=== PATIENT | female | born 1960 | race Caucasian/White ===

== ENCOUNTER → 2017-07-24 | Outpatient (CLI) | payer BC ==
--- NOTE | 2017-07-24 14:51 | MG ---
HISTORY: Left breast lump Bilateral digital diagnostic mammography with CAD and left breast ultrasound. Comparison: June 05, 2015 FINDINGS: Bilateral CC and MLO projections of the right and left breast were obtained. Scattered fibroglandula r tissue is seen to be present with evidence of interval reduction mammoplasty with probably benign r egions of postsurgical scar and redistribution of breast parenchyma. On the left in the region of in terest, there is an underlying superficial rounded partially obscured and partially circumscribed 10 mm hyperdense nodule which will be correlated with ultrasound. No skin thickening or nipple retracti on is appreciated. No pathological lymphadenopathy can be identified. Benign-appearing calcificatio ns are noted within the right and left breast. Several small lucent centered oil cysts are noted on t he left. Ultrasound: Multiple grayscale and color Doppler images of the left breast were obtained at 8-9 o'yamini ck. At 8 o'clock approximately 6 cm from the nipple, there is a horizontally oriented smoothly margin ated and well circumscribed hypoechoic nodule with posterior acoustical enhancement and internal Dopp ler flow which could reflect artifact related to internal debris with equivocal microcalcifications f avored to represent a developing oil cyst. At 9 o'clock approximately 4 cm from the nipple, there is a 7 mm horizontally oriented smoothly marginated and well circumscribed anechoic cyst with posterior acoustical enhancement and no internal Doppler flow which again could reflect a developing oil cyst o r simple parenchymal cysts. No suspicious cystic or solid nodule is seen to warrant biopsy at this ti me. IMPRESSION: Probably benign postsurgical changes bilaterally and developing oil cyst on the left for which six-month follow-up bilateral mammography is recommended to document stability and establish a new baseline. Ultrasound may be warranted as well pending mammographic findings. ACR CATEGORY 3 - probably benign findings; short interval follow-up suggested. Diagnostic CAD was utilized and reviewed. * 0 (ZERO) - ASSESSMENT INCOMPLETE; ADDITIONAL IMAGING IS NEEDED. * 1/ (ONE) - NEGATIVE. * 2/II (TWO) - BENIGN FINDINGS. * 3/III (THREE) - PROBABLY BENIGN FINDING; SHORT INTERVAL FOLLOW-UP SUGGESTED. * 4/IV (FOUR) - SUSPICIOUS ABNORMALITY; BIOPSY SHOULD BE CONSIDERED. * 5/V - HIGHLY SUSPICIOUS OF MALIGNANCY; BIOPSY SHOULD BE PERFORMED. A NEGATIVE X-RAY REPORT SHOULD NOT DELAY BIOPSY IF A DOMINANT OR CLINICALLY SUSPICIOUS MASS IS PRESENT; 4 TO 8 PERCENT OF CANCERS ARE NOT IDENTIFIED BY X-RAY. A NEGA TIVE REPORT MAY REINFORCE THE CLINICAL IMPRESSION. ADENOSIS AND DENSE BREASTS MAY OBSCURE AN UNDERLY ING NEOPLASM. Reported By:
== END ==
LOC: RAD 13:22
PROVIDERS: ATTEND Internal Medicine
DX: Z12.31 Encounter for screening mammogram for malignant neoplasm of breast (principal); R92.8 Other abnormal and inconclusive findings on diagnostic imaging of breast
CPT/HCPCS: 76642; 77066

== ENCOUNTER 2022-09-04 14:00 | Inpatient (IN) ==
[2022-09-04] MEDS: NS 1,000 ML IV 1,000 ML IV SCH (17:46)
[2022-09-04] MEDS: TORADOL 30 MG VIAL IVP SCH (17:47)
[2022-09-04] MEDS: DILAUDID INJ IVP PRN ×2 (17:48→22:05)
[2022-09-04 18:13] LABS: LYMPHOCYTES # (AUTO) 0.4 X10^3/uL (1.3-2.9); MONOCYTES # (AUTO) 0.1 x10^3/uL (0.3-0.8); NEUTROPHILS # (AUTO) 0.9 x10^3/uL (2.2-4.8)
[2022-09-04 18:20] LABS: BASOPHILS % (AUTO) 0.1 % (0.2-1.0); EOSINOPHILS % (AUTO) 1.2 % (0.9-2.9); HEMOGLOBIN 8.5 g/dL (12.0-16.0); LYMPHOCYTES % (AUTO) 29.3 % (21.0-51.0); MEAN CORPUSCULAR HEMOGLOBIN 27.6 pg (27.0-34.0); MEAN CORPUSCULAR VOLUME 81.2 fL (80.0-100.0); MEAN PLATELET VOLUME 6.6 fL (7.4-11.0); MONOCYTES % (AUTO) 8.9 % (0.0-13.0); NEUTROPHILS % (AUTO) 60.5 % (42.0-75.0); PLATELET COUNT 88 X10^3/uL (150.0-450.0); RED BLOOD COUNT 3.08 X10^6/uL (3.5-5.4); RED CELL DISTRIBUTION WIDTH 16.2 % (11.6-16.5)
[2022-09-04 18:24] LABS: ALANINE AMINOTRANSFERASE 32 Units/L (12-78); ALBUMIN 3.1 g/dL (3.4-5.0); ALKALINE PHOSPHATASE 78 Units/L (46-116); ASPARTATE AMINO TRANSFERASE 36 Units/L (15-37); BLOOD UREA NITROGEN 14 mg/dL (7-18); CALCIUM 9.1 mg/dL (8.5-10.1); CHLORIDE 101 mmol/L (98-107); COR CA(FOR HYPOALB) 9.8 mg/dL (8.5-10.1); CREATININE 1.33 mg/dL (0.55-1.02); GLUCOSE 87 mg/dL (65-99); POTASSIUM 3.1 mmol/L (3.5-5.1); SODIUM 142 mmol/L (136-145); TOTAL PROTEIN 6.9 g/dL (6.4-8.2); eGFR NON BLACK RACES 43 (>60)
[2022-09-04 18:28] VITALS: BMI 26.0
[2022-09-04 18:32] LABS: WHITE BLOOD COUNT 1.4 X10^3/uL (3.6-10.0)
[2022-09-05] MEDS: TORADOL 30 MG VIAL IVP SCH ×3 (01:28→13:09)
[2022-09-05] MEDS: DILAUDID INJ IVP PRN ×4 (04:52→18:03)
[2022-09-05 05:55] LABS: BASOPHILS % (AUTO) 0.1 % (0.2-1.0); HEMATOCRIT 21.5 % (36.0-47.0); HEMOGLOBIN 7.2 g/dL (12.0-16.0); LYMPHOCYTES # (AUTO) 0.4 X10^3/uL (1.3-2.9); MEAN CORPUSCULAR HEMOGLOBIN 27.1 pg (27.0-34.0); MEAN CORPUSCULAR HGB CONC 33.4 g/dL (33.0-35.0); MEAN CORPUSCULAR VOLUME 81.4 fL (80.0-100.0); MEAN PLATELET VOLUME 6.6 fL (7.4-11.0); MONOCYTES # (AUTO) 0.1 x10^3/uL (0.3-0.8); MONOCYTES % (AUTO) 9.1 % (0.0-13.0); NEUTROPHILS # (AUTO) 0.4 x10^3/uL (2.2-4.8); NEUTROPHILS % (AUTO) 44.8 % (42.0-75.0); PLATELET COUNT 66 X10^3/uL (150.0-450.0); RED BLOOD COUNT 2.64 X10^6/uL (3.5-5.4)
[2022-09-05] MEDS: NS 1,000 ML IV 1,000 ML IV SCH ×2 (06:00→22:38)
[2022-09-05 06:17] LABS: ALANINE AMINOTRANSFERASE 26 Units/L (12-78); ALBUMIN 2.6 g/dL (3.4-5.0); ALKALINE PHOSPHATASE 61 Units/L (46-116); ASPARTATE AMINO TRANSFERASE 25 Units/L (15-37); BLOOD UREA NITROGEN 12 mg/dL (7-18); CALCIUM 8.4 mg/dL (8.5-10.1); CARBON DIOXIDE 32.8 mmol/L (21-32); CHLORIDE 104 mmol/L (98-107); COR CA(FOR HYPOALB) 9.5 mg/dL (8.5-10.1); CREATININE 1.19 mg/dL (0.55-1.02); GLUCOSE 87 mg/dL (65-99); POTASSIUM 3.1 mmol/L (3.5-5.1); SODIUM 144 mmol/L (136-145); TOTAL PROTEIN 5.9 g/dL (6.4-8.2); eGFR NON BLACK RACES 49 (>60)
[2022-09-05] MEDS ORDERED: K-DUR TAB 20 MEQ PO PRN (07:51)
[2022-09-05] MEDS ORDERED: POTASSIUM CHL 40 MEQ/NS 0.45% 500 ML IV PRN (07:51)
[2022-09-05] MEDS ORDERED: K-RIDER 10 MEQ/NS 100 ML 10 MEQ/100 ML BAG IV PRN (07:51)
[2022-09-05] MEDS ORDERED: POTASSIUM CHL 60 MEQ/NS 0.45% 500 ML IV PRN (07:51)
[2022-09-05] MEDS ORDERED: KLOR-CON PO PRN (07:51)
[2022-09-05] MEDS ORDERED: MICRO K EXTEN CAP 10 MEQ PO PRN (07:51)
[2022-09-05] MEDS ORDERED: POTASSIUM CHLORIDE LIQ PO PRN (07:51)
[2022-09-05] MEDS ORDERED: PHENERGAN TAB 25 MG PO PRN (08:02)
[2022-09-05] MEDS: WELLBUTRIN SR 150 MG (BID) PO SCH ×2 (08:46→21:07)
[2022-09-05] MEDS: MAGNESIUM SULFATE 1 GRAM/100 mL PREMIX 1 G/100 ML BAG IV PRN ×2 (08:46→09:45)
[2022-09-05] MEDS: PROTONIX TAB 40 MG PO SCH (08:46)
[2022-09-05] MEDS: ROXICODONE TAB 5 MG PO PRN ×2 (08:46→21:08)
[2022-09-05] MEDS: BUSPAR PO SCH ×2 (08:46→21:06)
--- NOTE | 2022-09-05 18:03 | DR.H&P ---
H&P - History & Physical for Day of: H&P Date: 09/04/22 - Chief Complaint Chief Complaint: SEVERE PAIN - History of Present Illness History of Present Illness: PT IS 62 WF, DIRECT ADMIT FROM DR LUIS OFFICE WITH INTRACTABLE PAIN DUE TO METASTATIC VULVAR CANCER. PT IS POST VULVECTOMY. PT IS UNDER THE CARE OF DR SPICER. SHE HAS BEEN ON OXYCODONE AND DURAGESIC PATCH WITHOUT RELIEF. PT ADMITTED FOR TREATMENT AND EVALUATION OF INTRACTABLE PAIN. - Past Medical History Past Medical History: Hypertension, Depression, Anxiety - Past Surgical History Surgical History: BARREL PAINTER Surgery, Hysterectomy Additional Surgical History: VULVECTOMY - Family History Family Medical History: [place] - Social History Does patient currently use any type of tobacco product: Yes Have you used tobacco products in the last 12 months: Yes Alcohol Use: None Drug Use: None - Review of Systems Constitutional: Weakness, Malaise Eyes: No Symptoms Reported ENT: No Symptoms Reported Respiratory: No Symptoms Reported Cardiovascular: No Symptoms Reported Gastrointestinal: Nausea, Abdominal Pain Genitourinary: Other (SUPRPUBIC CATH) Musculoskeletal: Back Pain Skin: Wound Neurological: Weakness - Physical Exam Vital Signs: Vital Signs Temperature 98.1 F Temperature 99.2 F Pulse Rate [Apical] 71 Pulse Rate [Apical] 65 Respiratory Rate 18 Respiratory Rate 20 Respiratory Rate 20 Respiratory Rate 16 Respiratory Rate 16 Respiratory Rate 18 Respiratory Rate 20 Blood Pressure [Left Arm] 113/56 Blood Pressure [Left Arm] 114/61 O2 Sat by Pulse Oximetry 98 O2 Sat by Pulse Oximetry 99 09/05/22 14:18 09/05/22 16:00 09/05/22 14:48 Temperature 98.1 F Pulse Rate [Apical] 71 Respiratory Rate 20 18 20 Respiratory Effort Normal Non-Labored Normal Non-Labored O2 Sat by Pulse Oximetry 98 Oxygen Delivery Method Room Air Blood Pressure [Left Arm] 113/56 Blood Pressure Mean [Left Arm] 75 Blood Pressure Source [Left Arm] Automatic Cuff Oriented: Normal Eyes: Normal Ear: Normal Nose: Normal Throat: Normal Respiratory: RLL Diminished, LLL Diminished Cardiovascular: Normal : Normal, Other (SUPRAPUBIC CATHETER IN PLACE) Auscultation: Bowel Sounds: Decreased Tenderness: Suprapubic, Moderate Skin: Decreased Turgur, Wound (2CM FISSURE TO RIGHT LOWER ABDOMINAL FOLD WITH SCANT DC), Other (DIFFUSE PERINEAL EDEMA) Musculoskeletal: Back:Lumbar Psychiatric: Anxiety Speech Pattern: Clear, Appropriate - Assessment/Plan (1) Intractable pain Status: Acute Plan: ADMIT, PAIN CONTROL. GENTLE IV HYDRATION. UA, ADMISSION LABS. CATH CARE, VERIFY HOME MEDICATIONS (2) Primary vulvar cancer Status: Acute (3) Volume depletion Status: Acute (4) Acute UTI Status: Acute - Allergies Allergies/Adverse Reactions: Allergies Allergy/AdvReac Type Severity Reaction Status Date / Time No Known Drug Allergies Allergy Verified 02/25/18 22:45 - Medications Home Medications: Home Medications Medication Instructions Recorded Confirmed bupropion HCl 150 mg tablet,12 hr 150 mg PO BID 09/01/22 09/04/22 sustained-release buspirone 10 mg tablet 10 mg PO BID 09/01/22 09/04/22 fentanyl 50 mcg/hr transdermal 1 patch Q3D 09/01/22 09/04/22 patch hydrochlorothiazide 25 mg tablet 25 mg PO QDAY 09/01/22 09/04/22 ondansetron 4 mg disintegrating 1 tab PO Q4-6H PRN 09/01/22 09/04/22 tablet pantoprazole 40 mg tablet,delayed 40 mg PO QDAY 09/01/22 09/04/22 release simvastatin 10 mg tablet 10 mg PO DAILY 09/01/22 09/04/22 ciprofloxacin HCl 500 mg tablet 500 mg PO BID 09/04/22 09/04/22 oxycodone 20 mg tablet 20 mg PO QID PRN 09/04/22 09/04/22 promethazine 25 mg tablet 1 tab PO TID PRN 09/04/22 09/04/22
[2022-09-05] MEDS ORDERED: OFIRMEV IV 1000 MG VIAL 1,000 MG/100 ML VIAL IV PRN (18:05)
--- NOTE | 2022-09-05 18:10 | PCM.PROG ---
Progress Note - Progress Note for Day of Date of Exam: 09/05/22 - Subjective Subjective: PT IS 62 WF, DIRECT ADMIT FROM DR LUIS OFFICE WITH INTRACTABLE PAIN DUE TO METASTATIC VULVA CANCER. PT S/P VULVECTOMY. PT HAS SUPRAPUBIC CATH IN PLACE. UA ORDERED. PT HAS BEEN ON IV DILAUDID FOR PAIN AND SHES HAD IV TORADOL. WILL DC TORADOL FOR PAIN TODAY DUE TO DECREASED PLATELETS AT 65. PT HAS A DURAGESIC PAIN AND PO OXYCODONE FOR PAIN. TYLENOL IV ADDED PRN AND GABAPENTIN FOR NEUROPATHIC PAIN. PT HAS DUFFUSE SWELLING TO HER PERINEAL AREA WITHOUT SEVERE REDNESS. PT WAS ON CIPRO PRIOR TO ADMISSION, SO WE RESUMED ANTIBIOTIC THERAPY. PLAN TO REPEAT AM LABS. - Past Medical Family Social History Past Med/Fam/Surg Hx: No changes since H&P Allergies: Allergies No Known Drug Allergies Allergy (Verified 02/25/18 22:45) - Review of Systems ROS: No change since H&P - Vital Signs and I&O's Vital Signs: Vital Signs Temperature 98.1 F Temperature 99.2 F Pulse Rate [Apical] 71 Pulse Rate [Apical] 65 Respiratory Rate 20 Respiratory Rate 18 Respiratory Rate 20 Respiratory Rate 20 Respiratory Rate 16 Respiratory Rate 16 Respiratory Rate 18 Respiratory Rate 20 Blood Pressure [Left Arm] 113/56 Blood Pressure [Left Arm] 114/61 O2 Sat by Pulse Oximetry 98 O2 Sat by Pulse Oximetry 99 09/05/22 14:18 09/05/22 16:00 09/05/22 14:48 Temperature 98.1 F Pulse Rate [Apical] 71 Respiratory Rate 20 18 20 Respiratory Effort Normal Non-Labored Normal Non-Labored O2 Sat by Pulse Oximetry 98 Oxygen Delivery Method Room Air Blood Pressure [Left Arm] 113/56 Blood Pressure Mean [Left Arm] 75 Blood Pressure Source [Left Arm] Automatic Cuff 09/05/22 18:03 Temperature Pulse Rate [Apical] Respiratory Rate 20 Respiratory Effort Normal Non-Labored O2 Sat by Pulse Oximetry Oxygen Delivery Method Blood Pressure [Left Arm] Blood Pressure Mean [Left Arm] Blood Pressure Source [Left Arm] Intake and Output: Intake & Output 09/03/22 09/04/22 09/05/22 09/06/22 11:59 11:59 11:59 11:59 Intake Total 1423 / 1423 1877 / 1877 Output Total 250 / 250 800 / 800 Balance 1173 / 1173 1077 / 1077 - Physical Exam Oriented: Normal Eyes: Normal Ear: Normal Nose: Normal Throat: Normal Respiratory: Diminished Cardiovascular: Normal : Normal, Other (SUPRAPUBIC CATHETER IN PLACE) Auscultation: Bowel Sounds: Decreased Tenderness: Suprapubic, Moderate Skin: Decreased Turgur, Wound (2CM FISSURE TO RIGHT LOWER ABDOMINAL FOLD WITH SCANT DC), Other (DIFFUSE PERINEAL EDEMA) Musculoskeletal: Back:Lumbar Psychiatric: Anxiety Speech Pattern: Clear, Appropriate - Laboratory and Diagnostics Result Diagrams: 09/05/22 05:21 09/05/22 05:21 Labs: 09/04/22 19:00 Perineal Fluid Wound Culture - Preliminary Laboratory WBC 1.0 X10^3/uL (3.6-10.0) L* 09/05/22 05:21 RBC 2.64 X10^6/uL (3.5-5.4) L 09/05/22 05:21 Hgb 7.2 g/dL (12.0-16.0) L 09/05/22 05:21 Hct 21.5 % (36.0-47.0) L 09/05/22 05:21 MCV 81.4 fL (80.0-100.0) 09/05/22 05:21 MCH 27.1 pg (27.0-34.0) 09/05/22 05:21 MCHC 33.4 g/dL (33.0-35.0) 09/05/22 05:21 RDW 16.0 % (11.6-16.5) 09/05/22 05:21 Plt Count 66 X10^3/uL (150.0-450.0) L 09/05/22 05:21 MPV 6.6 fL (7.4-11.0) L 09/05/22 05:21 Neut % (Auto) 44.8 % (42.0-75.0) 09/05/22 05:21 Lymph % (Auto) 45.0 % (21.0-51.0) 09/05/22 05:21 Kimble % (Auto) 9.1 % (0.0-13.0) 09/05/22 05:21 Eos % (Auto) 1.0 % (0.9-2.9) 09/05/22 05:21 Baso % (Auto) 0.1 % (0.2-1.0) L 09/05/22 05:21 Neut # (Auto) 0.4 x10^3/uL (2.2-4.8) L 09/05/22 05:21 Lymph # (Auto) 0.4 X10^3/uL (1.3-2.9) L 09/05/22 05:21 [place] # (Auto) 0.1 x10^3/uL (0.3-0.8) L 09/05/22 05:21 Eos # (Auto) 0.0 x10^3/uL (0.0-0.2) 09/05/22 05:21 Baso # (Auto) 0.0 X10^3/uL (0.0-0.1) 09/05/22 05:21 Absolute Nucleated RBC 0.2 /100WBC 09/05/22 05:21 Sodium 144 mmol/L (136-145) 09/05/22 05:21 Corrected Sodium TNP 09/05/22 05:21 Potassium 3.1 mmol/L (3.5-5.1) L 09/05/22 05:21 Chloride 104 mmol/L (98-107) 09/05/22 05:21 Carbon Dioxide 32.8 mmol/L (21-32) H 09/05/22 05:21 BUN 12 mg/dL (7-18) 09/05/22 05:21 Creatinine 1.19 mg/dL (0.55-1.02) H 09/05/22 05:21 Est GFR (MDRD) Af Amer 59 (>60) 09/05/22 05:21 Est GFR (MDRD) Non-Af 49 (>60) L 09/05/22 05:21 Glucose 87 mg/dL (65-99) 09/05/22 05:21 Calcium 8.4 mg/dL (8.5-10.1) L 09/05/22 05:21 Corrected Calcium 9.5 mg/dL (8.5-10.1) 09/05/22 05:21 Magnesium 1.6 mg/dL (2.0-2.9) L 09/05/22 05:21 Total Bilirubin 0.20 mg/dL (0.2-1.0) 09/05/22 05:21 AST 25 Units/L (15-37) 09/05/22 05:21 ALT 26 Units/L (12-78) 09/05/22 05:21 Alkaline Phosphatase 61 Units/L (46-116) 09/05/22 05:21 Total Protein 5.9 g/dL (6.4-8.2) L 09/05/22 05:21 Albumin 2.6 g/dL (3.4-5.0) L 09/05/22 05:21 Globulin 3.3 g/dL (2.5-4.5) 09/05/22 05:21 Albumin/Globulin Ratio 0.8 Ratio (1.1-2.1) L 09/05/22 05:21 - Plan (1) Intractable pain Status: Acute Plan: PAIN CONTROL. GENTLE IV HYDRATION. UA, ADMISSION LABS. CATH CARE, VERIFY HOME MEDICATIONS (2) Primary vulvar cancer Status: Acute (3) Volume depletion Status: Acute (4) Acute UTI Status: Acute
[2022-09-05] MEDS: CIPRO IV 400 MG PREMIX* 400 MG/200 ML IV.SOLN. IV SCH (18:23)
[2022-09-05] MEDS: NEURONTIN CAP 100 MG PO SCH ×2 (18:24→21:07)
[2022-09-05] MEDS: COLACE CAP 100 MG PO SCH (21:06)
[2022-09-05] MEDS: MILK OF MAGNESIA PO SCH (21:07)
[2022-09-05 21:11] LABS: BILIRUBIN,URINE NEGATIVE (NEGATIVE); BLOOD/HEMOGLOBIN,URINE 1+ (NEGATIVE); GLUCOSE, URINE NEGATIVE (NEGATIVE); KETONES,URINE NEGATIVE (NEGATIVE); LEUKOCYTE ESTERASE ,URINE 1+ (NEGATIVE); NITRITES,URINE NEGATIVE (NEGATIVE); PROTEIN,URINE 2+ (NEGATIVE); UROBILINOGEN,URINE NORMAL (NORMAL)
[2022-09-05 21:22] LABS: APPEARANCE,URINE SLIGHTLY HAZY (CLEAR); BACTERIA,URINE 2+ /HPF (NEGATIVE); COLOR,URINE YELLOW (YELLOW); RBC,URINE 0-2 /HPF (0-3); SQUAMOUS EPITHELIAL CELL,UR NEGATIVE /HPF (NEGATIVE)
[2022-09-05] MEDS: NEURONTIN CAP 300 MG PO SCH (22:15)
[2022-09-06] MEDS: DILAUDID INJ IVP PRN ×5 (02:20→22:08)
[2022-09-06] MEDS: ROXICODONE TAB 5 MG PO PRN ×3 (04:20→16:13)
[2022-09-06 05:07] LABS: INR 0.95 (0.8-1.3)
[2022-09-06 05:24] LABS: ALANINE AMINOTRANSFERASE 23 Units/L (12-78); ALBUMIN 2.7 g/dL (3.4-5.0); ALKALINE PHOSPHATASE 67 Units/L (46-116); ASPARTATE AMINO TRANSFERASE 20 Units/L (15-37); BLOOD UREA NITROGEN 9 mg/dL (7-18); CALCIUM 8.5 mg/dL (8.5-10.1); CARBON DIOXIDE 31.2 mmol/L (21-32); CHLORIDE 102 mmol/L (98-107); COR CA(FOR HYPOALB) 9.5 mg/dL (8.5-10.1); CREATININE 0.96 mg/dL (0.55-1.02); GLUCOSE 86 mg/dL (65-99); POTASSIUM 3.1 mmol/L (3.5-5.1); SODIUM 142 mmol/L (136-145); TOTAL PROTEIN 6.4 g/dL (6.4-8.2); eGFR NON BLACK RACES > 60 (>60)
[2022-09-06 05:30] LABS: BASOPHILS % (AUTO) 0.3 % (0.2-1.0); EOSINOPHILS % (AUTO) 2.3 % (0.9-2.9); HEMATOCRIT 22.6 % (36.0-47.0); HEMOGLOBIN 7.6 g/dL (12.0-16.0); LYMPHOCYTES # (AUTO) 0.4 X10^3/uL (1.3-2.9); LYMPHOCYTES % (AUTO) 41.2 % (21.0-51.0); MEAN CORPUSCULAR HEMOGLOBIN 27.3 pg (27.0-34.0); MEAN CORPUSCULAR HGB CONC 33.6 g/dL (33.0-35.0); MEAN CORPUSCULAR VOLUME 81.2 fL (80.0-100.0); MEAN PLATELET VOLUME 6.7 fL (7.4-11.0); MONOCYTES # (AUTO) 0.2 x10^3/uL (0.3-0.8); MONOCYTES % (AUTO) 16.1 % (0.0-13.0); NEUTROPHILS # (AUTO) 0.4 x10^3/uL (2.2-4.8); NEUTROPHILS % (AUTO) 40.1 % (42.0-75.0); PLATELET COUNT 73 X10^3/uL (150.0-450.0); RED BLOOD COUNT 2.78 X10^6/uL (3.5-5.4); RED CELL DISTRIBUTION WIDTH 16.3 % (11.6-16.5)
[2022-09-06 05:37] LABS: WHITE BLOOD COUNT 0.9 X10^3/uL (3.6-10.0)
[2022-09-06] MEDS: NEURONTIN CAP 100 MG PO SCH (05:45)
[2022-09-06] MEDS: CIPRO IV 400 MG PREMIX* 400 MG/200 ML IV.SOLN. IV SCH ×2 (08:16→20:54)
[2022-09-06] MEDS: PROTONIX TAB 40 MG PO SCH (08:16)
[2022-09-06] MEDS: WELLBUTRIN SR 150 MG (BID) PO SCH ×2 (08:16→20:52)
[2022-09-06] MEDS: NS 1,000 ML IV 1,000 ML IV SCH (08:17)
[2022-09-06] MEDS: BUSPAR PO SCH ×2 (08:17→20:53)
--- NOTE | 2022-09-06 08:59 | RAD ---
HISTORYDYSPNEA ON EXERTIONSTUDYCHEST, 1 VIEWCOMPARISONNoneTECHNIQUEPA or AP view of the chestFINDINGSLeft chest wall port with tip in good position.[The cardiac and mediastinal contours are within normal limits. The lungs are clear without focal consolidation or segmental collapse. No pleural effusion or pneumothorax.]IMPRESSIONNo acute pulmonary process.Electronically signed by: Adarsh Jasmine (Sep 06, 2022 08:58:21)
[2022-09-06] MEDS: NS + KCL 20 MEQ/L 1,000 ML IV SCH ×3 (10:09→23:00)
[2022-09-06] MEDS: DURAGESIC 75 mcg/HR PATCH TD SCH (11:40)
[2022-09-06] MEDS: NEURONTIN CAP 300 MG PO SCH (14:22)
[2022-09-06] MEDS: COLACE CAP 100 MG PO SCH (20:52)
[2022-09-06] MEDS: MAG-OX TAB PO SCH (20:54)
[2022-09-06] MEDS: MILK OF MAGNESIA PO SCH (22:59)
[2022-09-07 05:08] LABS: BASOPHILS % (AUTO) 0.4 % (0.2-1.0); EOSINOPHILS % (AUTO) 3.4 % (0.9-2.9); HEMATOCRIT 22.6 % (36.0-47.0); HEMOGLOBIN 7.6 g/dL (12.0-16.0); LYMPHOCYTES # (AUTO) 0.3 X10^3/uL (1.3-2.9); LYMPHOCYTES % (AUTO) 47.7 % (21.0-51.0); MEAN CORPUSCULAR HEMOGLOBIN 27.4 pg (27.0-34.0); MEAN CORPUSCULAR HGB CONC 33.7 g/dL (33.0-35.0); MEAN CORPUSCULAR VOLUME 81.3 fL (80.0-100.0); MEAN PLATELET VOLUME 6.6 fL (7.4-11.0); MONOCYTES # (AUTO) 0.2 x10^3/uL (0.3-0.8); MONOCYTES % (AUTO) 24.2 % (0.0-13.0); NEUTROPHILS # (AUTO) 0.2 x10^3/uL (2.2-4.8); NEUTROPHILS % (AUTO) 24.3 % (42.0-75.0); PLATELET COUNT 50 X10^3/uL (150.0-450.0); RED BLOOD COUNT 2.78 X10^6/uL (3.5-5.4); RED CELL DISTRIBUTION WIDTH 16.2 % (11.6-16.5)
[2022-09-07 05:16] LABS: ALANINE AMINOTRANSFERASE 23 Units/L (12-78); ALBUMIN 2.7 g/dL (3.4-5.0); ALKALINE PHOSPHATASE 68 Units/L (46-116); ASPARTATE AMINO TRANSFERASE 17 Units/L (15-37); BLOOD UREA NITROGEN 9 mg/dL (7-18); CALCIUM 8.8 mg/dL (8.5-10.1); CARBON DIOXIDE 31.5 mmol/L (21-32); CHLORIDE 106 mmol/L (98-107); COR CA(FOR HYPOALB) 9.8 mg/dL (8.5-10.1); CREATININE 0.95 mg/dL (0.55-1.02); GLUCOSE 84 mg/dL (65-99); POTASSIUM 3.7 mmol/L (3.5-5.1); SODIUM 144 mmol/L (136-145); TOTAL PROTEIN 6.5 g/dL (6.4-8.2); eGFR NON BLACK RACES > 60 (>60)
[2022-09-07 05:21] LABS: WHITE BLOOD COUNT 0.7 X10^3/uL (3.6-10.0)
[2022-09-07 05:57] LABS: PLATELET MORPHOLOGY COMMENT NORMAL (NORMAL)
[2022-09-07 06:05] LABS: ANISOCYTOSIS SLIGHT
[2022-09-07] MEDS: PROTONIX TAB 40 MG PO SCH (09:03)
[2022-09-07] MEDS: WELLBUTRIN SR 150 MG (BID) PO SCH ×2 (09:03→20:45)
[2022-09-07] MEDS: BUSPAR PO SCH ×2 (09:04→20:45)
[2022-09-07] MEDS: MAG-OX TAB PO SCH ×2 (09:04→20:44)
[2022-09-07] MEDS: ROXICODONE TAB 5 MG PO PRN ×3 (09:05→19:53)
[2022-09-07] MEDS: CIPRO IV 400 MG PREMIX* 400 MG/200 ML IV.SOLN. IV SCH ×2 (09:07→20:45)
[2022-09-07] MEDS: NS + KCL 20 MEQ/L 1,000 ML IV SCH ×2 (09:07→11:01)
--- NOTE | 2022-09-07 12:20 | PCM.PROG ---
Progress Note Progress Note for Day of Date of Exam: 09/07/22 Subjective Subjective: PT IS 62 WF, DIRECT ADMIT FROM DR LUIS OFFICE WITH INTRACTABLE PAIN DUE TO METASTATIC VULVA CANCER. PT S/P VULVECTOMY. PT HAS SUPRAPUBIC CATH IN PLACE. UA ORDERED. PT HAS BEEN ON IV DILAUDID FOR PAIN AND SHES HAD IV TORADOL. WILL DC TORADOL FOR PAIN TODAY DUE TO DECREASED PLATELETS AT 65. PT HAS A DURAGESIC PAIN AND PO OXYCODONE FOR PAIN. TYLENOL IV ADDED PRN AND GABAPENTIN FOR NEUROPATHIC PAIN. PT HAS DUFFUSE SWELLING TO HER PERINEAL AREA WITHOUT SEVERE REDNESS. PT WAS ON CIPRO PRIOR TO ADMISSION, SO WE RESUMED ANTIBIOTIC THERAPY. PLAN TO REPEAT AM LABS. Friday, 07 September 2022 The patient report's her pain is controlled this morning and is not having any acute problems at this time. She is up walking around the room and seems comfortable. She is receiving IV Dilaudid and Duragesic patch for pain control. She is receiving IV ciprofloxacin for UTI secondary to Acinetobacter baumanii which has a LILA of less than 1. Patient has also grown out Enterococcus faecalis in the urine and it is not sensitive to ciprofloxacin. However it is sensitive to linezolid. She remains pancytopenic at this time. She is currently on reverse contact precautions. Past Medical Family Social History Past Med/Fam/Surg Hx: No changes since H&P Allergies: Allergies No Known Drug Allergies Allergy (Verified 02/25/18 22:45) Review of Systems ROS: No change since H&P Vital Signs and I&O's Vital Signs: Vital Signs Temperature 98.5 F Pulse Rate [Apical] 83 Respiratory Rate 18 Respiratory Rate 18 Respiratory Rate 20 Blood Pressure [Left Arm] 139/70 O2 Sat by Pulse Oximetry 94 09/07/22 09:05 09/07/22 10:05 Respiratory Rate 18 18 Respiratory Effort Normal Non-Labored Normal Non-Labored Intake and Output: Intake & Output 09/05/22 09/06/22 09/07/22 09/08/22 11:59 11:59 11:59 11:59 Intake Total 1423 / 1423 2779 / 2779 3979 / 3979 Output Total 250 / 250 1500 / 1500 1670 / 1670 Balance 1173 / 1173 1279 / 1279 2309 / 2309 Physical Exam Oriented: Normal Eyes: Normal Ear: Normal Nose: Normal Throat: Normal Respiratory: Diminished Cardiovascular: Normal : Normal and Other (SUPRAPUBIC CATHETER IN PLACE) Auscultation: Bowel Sounds: Decreased Tenderness: Suprapubic and Moderate Skin: Decreased Turgur, Wound (2CM FISSURE TO RIGHT LOWER ABDOMINAL FOLD WITH SCANT DC) and Other (DIFFUSE PERINEAL EDEMA) Musculoskeletal: Back:Lumbar Psychiatric: Anxiety Speech Pattern: Clear and Appropriate Laboratory and Diagnostics Result Diagrams: 09/07/22 04:30 09/07/22 04:30 Labs: 09/05/22 20:55 Urine,Catheterized Urine Culture - Final Enterococcus Faecalis 09/04/22 19:00 Perineal Fluid Wound Culture - Preliminary Laboratory WBC 0.7 X10^3/uL (3.6-10.0) L* 09/07/22 04:30 RBC 2.78 X10^6/uL (3.5-5.4) L 09/07/22 04:30 Hgb 7.6 g/dL (12.0-16.0) L 09/07/22 04:30 Hct 22.6 % (36.0-47.0) L 09/07/22 04:30 MCV 81.3 fL (80.0-100.0) 09/07/22 04:30 MCH 27.4 pg (27.0-34.0) 09/07/22 04:30 MCHC 33.7 g/dL (33.0-35.0) 09/07/22 04:30 RDW 16.2 % (11.6-16.5) 09/07/22 04:30 Plt Count 50 X10^3/uL (150.0-450.0) L 09/07/22 04:30 Plt Count Comment Decreased (ADEQUATE) A 09/07/22 04:30 MPV 6.6 fL (7.4-11.0) L 09/07/22 04:30 Neut % (Auto) 24.3 % (42.0-75.0) L 09/07/22 04:30 Lymph % (Auto) 47.7 % (21.0-51.0) 09/07/22 04:30 Crisp % (Auto) 24.2 % (0.0-13.0) H 09/07/22 04:30 Eos % (Auto) 3.4 % (0.9-2.9) H 09/07/22 04:30 Baso % (Auto) 0.4 % (0.2-1.0) 09/07/22 04:30 Neut # (Auto) 0.2 x10^3/uL (2.2-4.8) L 09/07/22 04:30 Lymph # (Auto) 0.3 X10^3/uL (1.3-2.9) L 09/07/22 04:30 Crisp # (Auto) 0.2 x10^3/uL (0.3-0.8) L 09/07/22 04:30 Eos # (Auto) 0.0 x10^3/uL (0.0-0.2) 09/07/22 04:30 Baso # (Auto) 0.0 X10^3/uL (0.0-0.1) 09/07/22 04:30 Absolute Nucleated RBC 1.7 /100WBC 09/07/22 04:30 Total Counted 25 09/07/22 04:30 Neutrophils % (Manual) 20 % (39-76) L 09/07/22 04:30 Lymphocytes % (Manual) 48 % (13-43) H 09/07/22 04:30 Monocytes % (Manual) 28 % (4-9) H 09/07/22 04:30 Eosinophils % (Manual) 4 % (0-6) 09/07/22 04:30 Plt Morphology Comment Normal (NORMAL) 09/07/22 04:30 RBC Morphology Abnormal (NORMAL) A 09/07/22 04:30 Anisocytosis Slight A 09/07/22 04:30 PT 12.4 SECONDS (11.8-14.3) 09/06/22 04:16 INR Target Range - 09/06/22 04:16 INR 0.95 (0.8-1.3) 09/06/22 04:16 Sodium 144 mmol/L (136-145) 09/07/22 04:30 Corrected Sodium TNP 09/07/22 04:30 Potassium 3.7 mmol/L (3.5-5.1) 09/07/22 04:30 Chloride 106 mmol/L (98-107) 09/07/22 04:30 Carbon Dioxide 31.5 mmol/L (21-32) 09/07/22 04:30 BUN 9 mg/dL (7-18) 09/07/22 04:30 Creatinine 0.95 mg/dL (0.55-1.02) 09/07/22 04:30 Est GFR (MDRD) Af Amer > 60 (>60) 09/07/22 04:30 Est GFR (MDRD) Non-Af > 60 (>60) 09/07/22 04:30 Glucose 84 mg/dL (65-99) 09/07/22 04:30 Calcium 8.8 mg/dL (8.5-10.1) 09/07/22 04:30 Corrected Calcium 9.8 mg/dL (8.5-10.1) 09/07/22 04:30 Magnesium 1.6 mg/dL (2.0-2.9) L 09/05/22 05:21 Total Bilirubin 0.20 mg/dL (0.2-1.0) 09/07/22 04:30 AST 17 Units/L (15-37) 09/07/22 04:30 ALT 23 Units/L (12-78) 09/07/22 04:30 Alkaline Phosphatase 68 Units/L (46-116) 09/07/22 04:30 Total Protein 6.5 g/dL (6.4-8.2) 09/07/22 04:30 Albumin 2.7 g/dL (3.4-5.0) L 09/07/22 04:30 Globulin 3.8 g/dL (2.5-4.5) 09/07/22 04:30 Albumin/Globulin Ratio 0.7 Ratio (1.1-2.1) L 09/07/22 04:30 Specimen Type Catherized urine 09/05/22 20:55 Urine Color Yellow (YELLOW) 09/05/22 20:55 Urine Appearance Slightly hazy (CLEAR) 09/05/22 20:55 Urine pH 6.0 (5.0 - 8.0) 09/05/22 20:55 Ur Specific [place] 1.025 (1.000-1.030) 09/05/22 20:55 Urine Protein 2+ (NEGATIVE) 09/05/22 20:55 Urine Glucose (UA) Negative (NEGATIVE) 09/05/22 20:55 Urine Ketones Negative (NEGATIVE) 09/05/22 20:55 Urine Blood 1+ (NEGATIVE) 09/05/22 20:55 Urine Nitrite Negative (NEGATIVE) 09/05/22 20:55 Urine Bilirubin Negative (NEGATIVE) 09/05/22 20:55 Urine Urobilinogen Normal (NORMAL) 09/05/22 20:55 Ur Leukocyte Esterase 1+ (NEGATIVE) 09/05/22 20:55 Urine RBC 0-2 /HPF (0-3) 09/05/22 20:55 Urine WBC 3-5 /HPF (0-5) 09/05/22 20:55 Ur Squamous Epith Cells Negative /HPF (NEGATIVE) 09/05/22 20:55 Amorphous Sediment Trace /HPF (NEGATIVE) 09/05/22 20:55 Urine Bacteria 2+ /HPF (NEGATIVE) 09/05/22 20:55 Ur Culture Indicated? Yes/culture set up 09/05/22 20:55 Radiology Reviewed: Yes Plan (1) Intractable pain: Status: Acute Narrative Support Text: Patient's pain is controlled at this time. Plan: PAIN CONTROL GENTLE IV HYDRATION UA, ADMISSION LABS CATH CARE, VERIFY HOME MEDICATIONS (2) Primary vulvar cancer: Status: Acute Plan: Patient has extensive metastasis in the pelvic region and we are monitoring her pain control at this time. (3) Volume depletion: Status: Acute Plan: IV hydration. (4) Acute UTI: Status: Acute Narrative Support Text: Patient has UTI secondary to Acinetobacter baumanii which is sensitive to ciprofloxacin with LILA of less than 1. She also grew out Enterococcus faecalis which is sensitive to linezolid with a LILA of less than 2. Plan: Continue IV ciprofloxacin and I will add IV linezolid.
[2022-09-07] MEDS: ZYVOX 600MG IV 600 MG/300 ML BAG IV SCH ×2 (12:51→20:45)
[2022-09-07] MEDS: DILAUDID INJ IVP PRN ×2 (14:45→23:22)
[2022-09-07] MEDS: NEURONTIN CAP 300 MG PO SCH ×2 (15:26→21:32)
[2022-09-07] MEDS: COLACE CAP 100 MG PO SCH (20:44)
[2022-09-07] MEDS: MILK OF MAGNESIA PO SCH (20:44)
[2022-09-08] MEDS: NS + KCL 20 MEQ/L 1,000 ML IV SCH ×2 (00:08→18:10)
[2022-09-08] MEDS: ROXICODONE TAB 5 MG PO PRN ×4 (02:21→23:03)
[2022-09-08 04:52] LABS: HEMATOCRIT 20.7 % (36.0-47.0)
[2022-09-08 04:56] LABS: ALANINE AMINOTRANSFERASE 21 Units/L (12-78); ALBUMIN 2.3 g/dL (3.4-5.0); ALKALINE PHOSPHATASE 59 Units/L (46-116); ASPARTATE AMINO TRANSFERASE 15 Units/L (15-37); BLOOD UREA NITROGEN 8 mg/dL (7-18); CALCIUM 8.2 mg/dL (8.5-10.1); CARBON DIOXIDE 32.4 mmol/L (21-32); CHLORIDE 104 mmol/L (98-107); COR CA(FOR HYPOALB) 9.6 mg/dL (8.5-10.1); CREATININE 0.91 mg/dL (0.55-1.02); GLUCOSE 97 mg/dL (65-99); MAGNESIUM 1.5 mg/dL (2.0-2.9); POTASSIUM 4.5 mmol/L (3.5-5.1); SODIUM 141 mmol/L (136-145); eGFR NON BLACK RACES > 60 (>60)
[2022-09-08 05:00] LABS: BASOPHILS % (AUTO) 0.3 % (0.2-1.0); EOSINOPHILS % (AUTO) 5.2 % (0.9-2.9); LYMPHOCYTES # (AUTO) 0.4 X10^3/uL (1.3-2.9); LYMPHOCYTES % (AUTO) 45.8 % (21.0-51.0); MEAN CORPUSCULAR HEMOGLOBIN 27.2 pg (27.0-34.0); MEAN CORPUSCULAR HGB CONC 33.5 g/dL (33.0-35.0); MEAN CORPUSCULAR VOLUME 81.3 fL (80.0-100.0); MEAN PLATELET VOLUME 6.6 fL (7.4-11.0); MONOCYTES # (AUTO) 0.3 x10^3/uL (0.3-0.8); MONOCYTES % (AUTO) 34.4 % (0.0-13.0); NEUTROPHILS # (AUTO) 0.1 x10^3/uL (2.2-4.8); NEUTROPHILS % (AUTO) 14.3 % (42.0-75.0); PLATELET COUNT 35 X10^3/uL (150.0-450.0); RED BLOOD COUNT 2.55 X10^6/uL (3.5-5.4); RED CELL DISTRIBUTION WIDTH 16.3 % (11.6-16.5)
[2022-09-08 05:05] LABS: WHITE BLOOD COUNT 0.8 X10^3/uL (3.6-10.0)
[2022-09-08 05:08] LABS: ERYTHROCYTE SEDIMENTATION RATE 46 MM/HOUR (0-20)
[2022-09-08] MEDS: NEURONTIN CAP 300 MG PO SCH ×3 (05:14→21:04)
[2022-09-08 05:49] LABS: ANISOCYTOSIS SLIGHT; PLATELET MORPHOLOGY COMMENT NORMAL (NORMAL)
[2022-09-08] MEDS ORDERED: PHARMACY CONSULT - POTASSIUM & MAGNESIUM XX SCH (06:00)
[2022-09-08] MEDS: MAGNESIUM SULFATE 1 GRAM/100 mL PREMIX 1 G/100 ML BAG IV SCH ×2 (06:13→09:18)
[2022-09-08] MEDS: MAG-OX TAB PO SCH ×2 (08:57→20:23)
[2022-09-08] MEDS: BUSPAR PO SCH ×2 (08:57→20:24)
[2022-09-08] MEDS: DILAUDID INJ IVP PRN ×5 (08:57→22:01)
[2022-09-08] MEDS: WELLBUTRIN SR 150 MG (BID) PO SCH ×2 (08:57→20:24)
[2022-09-08] MEDS: PROTONIX TAB 40 MG PO SCH (08:58)
[2022-09-08] MEDS ORDERED: NS 250 ML IV 250 ML IV ONE (09:07)
[2022-09-08] MEDS: ZYVOX 600MG IV 600 MG/300 ML BAG IV SCH ×2 (09:18→20:24)
[2022-09-08] MEDS: CIPRO IV 400 MG PREMIX* 400 MG/200 ML IV.SOLN. IV SCH ×2 (11:53→20:24)
[2022-09-08 17:37] LABS: HEMATOCRIT 26.4 % (36.0-47.0); HEMOGLOBIN 8.8 g/dL (12.0-16.0)
[2022-09-08] MEDS: MILK OF MAGNESIA PO SCH (20:24)
[2022-09-08] MEDS: COLACE CAP 100 MG PO SCH (20:24)
[2022-09-09] MEDS: DILAUDID INJ IVP PRN ×8 (00:59→23:38)
[2022-09-09] MEDS: NS + KCL 20 MEQ/L 1,000 ML IV SCH (01:11)
[2022-09-09] MEDS: NEURONTIN CAP 300 MG PO SCH ×3 (05:12→21:52)
[2022-09-09 05:28] LABS: BASOPHILS % (AUTO) 0.5 % (0.2-1.0); HEMATOCRIT 23.3 % (36.0-47.0); HEMOGLOBIN 7.9 g/dL (12.0-16.0); LYMPHOCYTES # (AUTO) 0.4 X10^3/uL (1.3-2.9); LYMPHOCYTES % (AUTO) 40.5 % (21.0-51.0); MEAN CORPUSCULAR HEMOGLOBIN 27.8 pg (27.0-34.0); MEAN CORPUSCULAR HGB CONC 33.8 g/dL (33.0-35.0); MEAN CORPUSCULAR VOLUME 82.1 fL (80.0-100.0); MEAN PLATELET VOLUME 6.5 fL (7.4-11.0); MONOCYTES # (AUTO) 0.3 x10^3/uL (0.3-0.8); MONOCYTES % (AUTO) 27.6 % (0.0-13.0); NEUTROPHILS # (AUTO) 0.3 x10^3/uL (2.2-4.8); NEUTROPHILS % (AUTO) 28.4 % (42.0-75.0); PLATELET COUNT 26 X10^3/uL (150.0-450.0); RED BLOOD COUNT 2.84 X10^6/uL (3.5-5.4); RED CELL DISTRIBUTION WIDTH 15.6 % (11.6-16.5)
[2022-09-09 05:42] LABS: ALANINE AMINOTRANSFERASE 23 Units/L (12-78); ALBUMIN 2.2 g/dL (3.4-5.0); ALKALINE PHOSPHATASE 61 Units/L (46-116); ASPARTATE AMINO TRANSFERASE 19 Units/L (15-37); BLOOD UREA NITROGEN 7 mg/dL (7-18); CALCIUM 8.5 mg/dL (8.5-10.1); CARBON DIOXIDE 31.5 mmol/L (21-32); CHLORIDE 106 mmol/L (98-107); COR CA(FOR HYPOALB) 9.9 mg/dL (8.5-10.1); CREATININE 0.86 mg/dL (0.55-1.02); GLUCOSE 90 mg/dL (65-99); MAGNESIUM 1.9 mg/dL (2.0-2.9); POTASSIUM 4.6 mmol/L (3.5-5.1); SODIUM 142 mmol/L (136-145); TOTAL PROTEIN 5.7 g/dL (6.4-8.2); eGFR NON BLACK RACES > 60 (>60)
[2022-09-09] MEDS ORDERED: PHARMACY CONSULT - POTASSIUM & MAGNESIUM XX SCH (06:00)
[2022-09-09 06:02] LABS: ANISOCYTOSIS SLIGHT; PLATELET MORPHOLOGY COMMENT NORMAL (NORMAL)
[2022-09-09] MEDS: MAGNESIUM SULFATE 1 GRAM/100 mL PREMIX 1 G/100 ML BAG IV SCH ×2 (06:15→08:27)
--- NOTE | 2022-09-09 07:48 | PCM.PROG ---
Progress Note Progress Note for Day of Date of Exam: 09/08/22 Subjective Subjective: PT IS 62 WF, DIRECT ADMIT FROM DR LUIS OFFICE WITH INTRACTABLE PAIN DUE TO METASTATIC VULVA CANCER. PT S/P VULVECTOMY. PT HAS SUPRAPUBIC CATH IN PLACE. UA ORDERED. PT HAS BEEN ON IV DILAUDID FOR PAIN AND SHES HAD IV TORADOL. WILL DC TORADOL FOR PAIN TODAY DUE TO DECREASED PLATELETS AT 66. PT HAS A DURAGESIC PAIN AND PO OXYCODONE FOR PAIN. TYLENOL IV ADDED PRN AND GABAPENTIN FOR NEUROPATHIC PAIN. PT HAS DUFFUSE SWELLING TO HER PERINEAL AREA WITHOUT SEVERE REDNESS. PT WAS ON CIPRO PRIOR TO ADMISSION, SO WE RESUMED ANTIBIOTIC THERAPY. PLAN TO REPEAT AM LABS. Friday, 07 September 2022 The patient report's her pain is controlled this morning and is not having any acute problems at this time. She is up walking around the room and seems comfortable. She is receiving IV Dilaudid and Duragesic patch for pain control. She is receiving IV ciprofloxacin for UTI secondary to Acinetobacter baumanii which has a LILA of less than 1. Patient has also grown out Enterococcus faecalis in the urine and it is not sensitive to ciprofloxacin. However it is sensitive to linezolid. She remains pancytopenic at this time. She is currently on reverse contact precautions. Friday, 08 September 2022 Patient reports her pain is not under control. She is getting her Dilaudid 2 mg IV every 4 hours changed every 3 hours instead for better pain control. Her hemoglobin also dropped down around 7 so we will give her 1 unit packed red blood cells today. Past Medical Family Social History Past Med/Fam/Surg Hx: No changes since H&P Allergies: Allergies No Known Drug Allergies Allergy (Verified 02/25/18 22:45) Review of Systems ROS: No change since H&P Vital Signs and I&O's Vital Signs: Vital Signs Temperature 98 F Temperature 98.5 F Pulse Rate [Apical] 61 Pulse Rate [Apical] 80 Respiratory Rate 18 Respiratory Rate 18 Respiratory Rate 20 Respiratory Rate 20 Respiratory Rate 20 Respiratory Rate 18 Respiratory Rate 20 Blood Pressure [Left Arm] 133/61 Blood Pressure [Left Arm] 163/70 O2 Sat by Pulse Oximetry 96 O2 Sat by Pulse Oximetry 99 09/09/22 04:00 09/09/22 05:04 09/09/22 05:12 Temperature 98 F Temperature Source Oral Pulse Rate [Apical] 61 Pulse Assessment Method [Apical] Dinamap Respiratory Rate 20 18 Respiratory Effort Normal Non-Labored O2 Sat by Pulse Oximetry 96 Oxygen Delivery Method Room Air Blood Pressure [Left Arm] 133/61 Blood Pressure Mean [Left Arm] 85 Blood Pressure Source [Left Arm] Automatic Cuff Blood Pressure Position [Left Arm] Semi Naylor's Weight 148 lb 4 oz 09/09/22 05:42 Temperature Temperature Source Pulse Rate [Apical] Pulse Assessment Method [Apical] Respiratory Rate 18 Respiratory Effort Normal Non-Labored O2 Sat by Pulse Oximetry Oxygen Delivery Method Blood Pressure [Left Arm] Blood Pressure Mean [Left Arm] Blood Pressure Source [Left Arm] Blood Pressure Position [Left Arm] Weight Intake and Output: Intake & Output 09/06/22 09/07/22 09/08/22 09/09/22 11:59 11:59 11:59 11:59 Intake Total 2779 / 2779 3979 / 3979 4118 / 4118 4065 / 4065 Output Total 1500 / 1500 1670 / 1670 1600 / 1600 3600 / 3600 Balance 1279 / 1279 2309 / 2309 2518 / 2518 465 / 465 Physical Exam Oriented: Normal Eyes: Normal Ear: Normal Nose: Normal Throat: Normal Respiratory: Diminished Cardiovascular: Normal : Normal and Other (SUPRAPUBIC CATHETER IN PLACE) Auscultation: Bowel Sounds: Decreased Tenderness: Suprapubic and Moderate Skin: Decreased Turgur, Wound (2CM FISSURE TO RIGHT LOWER ABDOMINAL FOLD WITH SCANT DC) and Other (DIFFUSE PERINEAL EDEMA) Musculoskeletal: Back:Lumbar Psychiatric: Anxiety Speech Pattern: Clear and Appropriate Laboratory and Diagnostics Result Diagrams: 09/09/22 04:00 09/09/22 04:00 Labs: 09/04/22 19:00 Perineal Fluid Wound Culture - Preliminary 09/05/22 20:55 Urine,Catheterized Urine Culture - Final Enterococcus Faecalis Laboratory WBC 1.0 X10^3/uL (3.6-10.0) L* 09/09/22 04:00 RBC 2.84 X10^6/uL (3.5-5.4) L 09/09/22 04:00 Hgb 7.9 g/dL (12.0-16.0) L 09/09/22 04:00 Hct 23.3 % (36.0-47.0) L 09/09/22 04:00 MCV 82.1 fL (80.0-100.0) 09/09/22 04:00 MCH 27.8 pg (27.0-34.0) 09/09/22 04:00 MCHC 33.8 g/dL (33.0-35.0) 09/09/22 04:00 RDW 15.6 % (11.6-16.5) 09/09/22 04:00 Plt Count 26 X10^3/uL (150.0-450.0) L 09/09/22 04:00 Plt Count Comment Decreased (ADEQUATE) A 09/09/22 04:00 MPV 6.5 fL (7.4-11.0) L 09/09/22 04:00 Neut % (Auto) 28.4 % (42.0-75.0) L 09/09/22 04:00 Lymph % (Auto) 40.5 % (21.0-51.0) 09/09/22 04:00 [place] % (Auto) 27.6 % (0.0-13.0) H 09/09/22 04:00 Eos % (Auto) 3.0 % (0.9-2.9) H 09/09/22 04:00 Baso % (Auto) 0.5 % (0.2-1.0) 09/09/22 04:00 Neut # (Auto) 0.3 x10^3/uL (2.2-4.8) L 09/09/22 04:00 Lymph # (Auto) 0.4 X10^3/uL (1.3-2.9) L 09/09/22 04:00 [place] # (Auto) 0.3 x10^3/uL (0.3-0.8) 09/09/22 04:00 Eos # (Auto) 0.0 x10^3/uL (0.0-0.2) 09/09/22 04:00 Baso # (Auto) 0.0 X10^3/uL (0.0-0.1) 09/09/22 04:00 Absolute Nucleated RBC 0.8 /100WBC 09/09/22 04:00 Total Counted 25 09/09/22 04:00 Neutrophils % (Manual) 30 % (39-76) L 09/09/22 04:00 Lymphocytes % (Manual) 36 % (13-43) 09/09/22 04:00 Monocytes % (Manual) 30 % (4-9) H 09/09/22 04:00 Eosinophils % (Manual) 4 % (0-6) 09/09/22 04:00 Plt Morphology Comment Normal (NORMAL) 09/09/22 04:00 RBC Morphology Abnormal (NORMAL) A 09/09/22 04:00 Anisocytosis Slight A 09/09/22 04:00 ESR 46 MM/HOUR (0-20) H 09/08/22 04:20 PT 12.4 SECONDS (11.8-14.3) 09/06/22 04:16 INR Target Range - 09/06/22 04:16 INR 0.95 (0.8-1.3) 09/06/22 04:16 Sodium 142 mmol/L (136-145) 09/09/22 04:00 Corrected Sodium TNP 09/09/22 04:00 Potassium 4.6 mmol/L (3.5-5.1) 09/09/22 04:00 Chloride 106 mmol/L (98-107) 09/09/22 04:00 Carbon Dioxide 31.5 mmol/L (21-32) 09/09/22 04:00 BUN 7 mg/dL (7-18) 09/09/22 04:00 Creatinine 0.86 mg/dL (0.55-1.02) 09/09/22 04:00 Est GFR (MDRD) Af Amer > 60 (>60) 09/09/22 04:00 Est GFR (MDRD) Non-Af > 60 (>60) 09/09/22 04:00 Glucose 90 mg/dL (65-99) 09/09/22 04:00 Calcium 8.5 mg/dL (8.5-10.1) 09/09/22 04:00 Corrected Calcium 9.9 mg/dL (8.5-10.1) 09/09/22 04:00 Magnesium 1.9 mg/dL (2.0-2.9) L 09/09/22 04:00 Total Bilirubin 0.30 mg/dL (0.2-1.0) 09/09/22 04:00 AST 19 Units/L (15-37) 09/09/22 04:00 ALT 23 Units/L (12-78) 09/09/22 04:00 Alkaline Phosphatase 61 Units/L (46-116) 09/09/22 04:00 C-Reactive Protein 72.40 mg/L (0-3.0) H 09/08/22 04:20 Total Protein 5.7 g/dL (6.4-8.2) L 09/09/22 04:00 Albumin 2.2 g/dL (3.4-5.0) L 09/09/22 04:00 Globulin 3.5 g/dL (2.5-4.5) 09/09/22 04:00 Albumin/Globulin Ratio 0.6 Ratio (1.1-2.1) L 09/09/22 04:00 Specimen Type Catherized urine 09/05/22 20:55 Urine Color Yellow (YELLOW) 09/05/22 20:55 Urine Appearance Slightly hazy (CLEAR) 09/05/22 20:55 Urine pH 6.0 (5.0 - 8.0) 09/05/22 20:55 Ur Specific [place] 1.025 (1.000-1.030) 09/05/22 20:55 Urine Protein 2+ (NEGATIVE) 09/05/22 20:55 Urine Glucose (UA) Negative (NEGATIVE) 09/05/22 20:55 Urine Ketones Negative (NEGATIVE) 09/05/22 20:55 Urine Blood 1+ (NEGATIVE) 09/05/22 20:55 Urine Nitrite Negative (NEGATIVE) 09/05/22 20:55 Urine Bilirubin Negative (NEGATIVE) 09/05/22 20:55 Urine Urobilinogen Normal (NORMAL) 09/05/22 20:55 Ur Leukocyte Esterase 1+ (NEGATIVE) 09/05/22 20:55 Urine RBC 0-2 /HPF (0-3) 09/05/22 20:55 Urine WBC 3-5 /HPF (0-5) 09/05/22 20:55 Ur Squamous Epith Cells Negative /HPF (NEGATIVE) 09/05/22 20:55 Amorphous Sediment Trace /HPF (NEGATIVE) 09/05/22 20:55 Urine Bacteria 2+ /HPF (NEGATIVE) 09/05/22 20:55 Ur Culture Indicated? Yes/culture set up 09/05/22 20:55 Blood Type O POSITIVE 09/08/22 10:07 Antibody Screen Negative 09/08/22 10:07 Crossmatch See Detail 09/08/22 10:07 Plan (1) Intractable pain: Status: Acute Plan: PAIN CONTROL GENTLE IV HYDRATION UA, ADMISSION LABS CATH CARE, VERIFY HOME MEDICATIONS (2) Primary vulvar cancer: Status: Acute Plan: Patient has extensive metastasis in the pelvic region and we are monitoring her pain control at this time. (3) Volume depletion: Status: Acute Plan: IV hydration. (4) Acute UTI: Status: Acute Plan: Continue IV ciprofloxacin and I will add IV linezolid.
[2022-09-09] MEDS: PROTONIX TAB 40 MG PO SCH (08:26)
[2022-09-09] MEDS: BUSPAR PO SCH ×2 (08:27→20:03)
[2022-09-09] MEDS: ROXICODONE TAB 5 MG PO PRN ×3 (08:27→22:21)
[2022-09-09] MEDS: MAG-OX TAB PO SCH ×2 (08:27→20:05)
[2022-09-09] MEDS: ZYVOX 600MG IV 600 MG/300 ML BAG IV SCH ×2 (08:27→20:05)
[2022-09-09] MEDS: WELLBUTRIN SR 150 MG (BID) PO SCH ×2 (08:28→20:06)
[2022-09-09] MEDS ORDERED: XYLOCAINE OINT 5% TOP PRN (09:29)
[2022-09-09] MEDS: CIPRO IV 400 MG PREMIX* 400 MG/200 ML IV.SOLN. IV SCH ×2 (09:37→20:03)
[2022-09-09] MEDS: DURAGESIC 75 mcg/HR PATCH TD SCH (11:00)
[2022-09-09] MEDS ORDERED: NS 250 ML IV 250 ML IV ONE (13:59)
--- NOTE | 2022-09-09 16:19 | CT ---
EXAM: CT PELVIS WITHOUT INTRAVENOUS CONTRASTHISTORY: Pain. Vulvar cancer.TECHNIQUE: Spiral axial CT images are obtained through the pelvis without the administration of intravenous contrast. Additional coronal and sagittal reformatted images are reconstructed.DOSIMETRY: Total DLP 190.15 mGycm; CTDI 5.82 mGyCOMPARISON: None available.FINDINGS:There is an approximately 5.8 cm AP by 1.7 cm transverse by 3.1 cm CC asymmetrical enlargement and relative lucency (8.1 HU) of the left labia minora; DDx includes infectious process with developing phlegmon or abscess in the appropriate clinical setting; cannot rule out neoplastic lesion (with possible tissue necrosis). Axial image 42?51; coronal image 31?52. Correlation with postcontrast CT and/or MRI may be beneficial for further characterization.There is extensive soft tissue edema and swelling seen throughout the bilateral labia majora, contiguous anterior and lateral pelvic wall, and contiguous anterior/medial/lateral thighs; DDx includes infectious process osteomyelitis in the appropriate clinical setting; consider anasarca; rule out third spacing secondary to hypoalbuminemia or hypervolemia.A suprapubic Bang balloon catheter is noted with the distal tip/bulb within a collapsed urinary bladder. There is an approximately 6.7 cm CC by 2.6 cm transverse by 2.9 cm AP right inguinal hernia containing omental fat with streaky density and complex appearing interstitial fluid seen within the distal hernia fat; similar-appearing but smaller left inguinal hernia, measuring approximately 7 cm CC by 2.6 cm transverse by 2.2 cm AP, containing omental fat with complex interstitial fluid in the distal aspect of the hernia; DDx includes infectious processes and/or postinflammatory changes; cannot rule out fat necrosis. Coronal image 21?32; axial image 26?39.The visualized intrapelvic small and large bowel loops are within normal limits for a CT scan. No suspicious pelvic mass is seen. No free fluid or free air is seen. No suspicious pelvic sidewall or inguinal lymphadenopathy is seen. The patient is status post hysterectomy.L5/S1: Severe DDD (with up to 5.6 mm posterior disc bulge) and severe bilateral hypertrophic facet joint DJD contributing to severe lateral recess, spinal canal stenosis with probable L5 nerve root impingements. Axial image 9?12; sagittal image 54?66.IMPRESSION:1. Approximately 5.8 cm AP by 1.7 cm transverse by 3.1 cm CC asymmetrical enlargement and relative lucency (8.1 HU) of the left labia minora; DDx includes infectious process with developing phlegmon or abscess in the appropriate clinical setting; cannot rule out neoplastic lesion (with possible tissue necrosis). Axial image 42?51; coronal image 31?52. Correlation with postcontrast CT and/or MRI may be beneficial for further characterization.2. Extensive soft tissue edema and swelling seen throughout the bilateral labia majora, contiguous anterior and lateral pelvic wall, and contiguous anterior/medial/lateral thighs; DDx includes infectious process osteomyelitis in the appropriate clinical setting; consider anasarca; rule out third spacing secondary to hypoalbuminemia or hypervolemia.3. A suprapubic Bang balloon catheter is noted with the distal tip/bulb within a collapsed urinary bladder.4. Approximately 6.7 cm CC by 2.6 cm transverse by 2.9 cm AP right inguinal hernia containing omental fat with streaky density and complex appearing interstitial fluid seen within the distal hernia fat; similar-appearing but smaller left inguinal hernia, measuring approximately 7 cm CC by 2.6 cm transverse by 2.2 cm AP, containing omental fat with complex interstitial fluid in the distal aspect of the hernia; DDx includes infectious processes and/or postinflammatory changes; cannot rule out fat necrosis. Coronal image 21?32; axial image 26?39.5. L5/S1: Severe DDD (with up to 5.6 mm posterior disc bulge) and severe bilateral hypertrophic facet joint DJD contributing to severe lateral recess, spinal canal stenosis with probable L5 nerve root impingements. Axial image 9?12; sagittal image 54?66.Electronically signed by: Raz Kimball (Sep 09, 2022 16:17:47)
--- NOTE | 2022-09-09 16:25 | PCM.PROG ---
Progress Note - Progress Note for Day of Date of Exam: 09/09/22 - Subjective Subjective: IS A 62 YEAR OLD PATIENT OF OURS. SHE HAS A HISTORY OF VULVULAR CANCER WITH METS TO THE PELVIC REGION, GERD, ARTHRITIS, DEGENERATIVE DISC DISEASE, ANXIETY, DEPRESSION, BREAST REDUCTION, PORT A CATH, AND VULVECTOMY. SHE IS CURRENTLY INPATIENT STATUS FOR TREATMENT OF INTRACTABLE PAIN TO THE PERINEAL AREA, PANCYTOPENIA, ANEMIA, HYPOMAGNESEMIA, AND UTI DUE TO ENTEROCOCCUS FAECALIS. SHE IS ON REVERSE ISOLATION PRECAUTIONS. SHE RECEIVED ONE UNIT OF PACKED RED BLOOD CELLS YESTERDAY. SHE IS CURRENTLY UNDER THE CARE OF FOR CHEMOTHERAPY. SHE HAD RADIATION IN THE PAST. SHE HAS BEEN ON OXYCODONE AND A DURAGESIC PATCH PRIOR TO ADMISSION, BUT THEY WERE NOT CONTROLLING HER PAIN. TODAY, SHE IS ALERT AND ORIENTED, SITTING UP IN BED ON MORNING ROUNDS. SHE CONTINUES TO COMPLAIN OF PERSISTENT PAIN AND SWELLING OF THE PERINEUM THAT HASNT IMPROVED MUCH SINCE ADMISSION. ON EXAMINATION, HEART IS REGULAR IN RATE AND RHYTHM. BILATERAL LUNGS ARE NOTED WITH DIMINISHED LUNG SOUNDS THROUGHOUT. ABDOMEN IS ROUND, SOFT, AND NON-TENDER WITH HYPOACTIVE BOWEL SOUNDS NOTED. SUPRAPUBIC CATHETER NOTED. DIFFUSE PERINEAL EDEMA NOTED FOLLOWING HER RECENT VULVECTOMY. NO REDNESS NOTED. GOOD MOVEMENT NOTED TO UPPER AND LOWER EXTREMITIES WITH NO EDEMA NOTED. HER VITALS THIS MORNING WERE: 98.5-70-2 0-96%-132/64. LABS WERE OBTAINED. WBC 1.0, RBC 2.84, HGB 7.9, HCT 23.3, PLT COUNT 26, SODIUM 142, POTASSIUM 4.6, CHLORIDE 106, CARBON DIOXIDE 31.5, BUN 7, CREATININE 0.86, GLUCOSE 90, CALCIUM 8.5, MAGNESIUM 1.9, AST 19, ALT 23, ALK PHOS 61, TOTAL PROTEIN 5.7, ALBUMIN 2.2. SHE IS CURRENTLY RECEIVING NORMAL SALINE WITH 20 MEQ KCL AT 80 ML/HR, CIPRO 400MG IV Q12H, ZYVOX 600MG IV Q12H, IV TYLENOL 1000MG IV Q6H PRN, DURAGESIC 75MCG/HR PATCH, DILAUDID 2MG IV Q2H PRN, OXYCODONE 20MG QID PNR, BUSPAR 10MG BID, BUPROPION 150MG BID, COLACE 100MG HS, GABAPENTIN 300MG TID, MILK OF MAGNESIA 30ML HS, MAG OX 400MG BID, PROTONIX 40MG DAILY, PHENERGAN 25MG TID PRN. TODAY, WE WILL ADD ALBUMIN % IV DAILY AND LI DOCAINE OINTMENT TO PERINEUM PRN. WE WILL CONSULT , OB-FOREIGN LEGAL CONSULTANT, FOR FURTHER RECOMMENDATIONS REGARDING PERSISTENT PAIN AND SWELLING OF THE PERINEUM. OTHERWISE, WE WILL FOLLOW-UP WITH AM LABS AND CONTINUE TO MONITOR. We counseled the patient on the importance of mandatory lifestyle changes including diet and adequate exercise due to elevated BMI. - Past Medical Family Social History Past Med/Fam/Surg Hx: No changes since H&P Allergies: Allergies No Known Drug Allergies Allergy (Verified 02/25/18 22:45) - Review of Systems ROS: No change since H&P - Vital Signs and I&O's Vital Signs: Vital Signs Temperature 97.9 F Pulse Rate [Apical] 66 Respiratory Rate 16 Respiratory Rate 16 Respiratory Rate 16 Respiratory Rate 16 Respiratory Rate 20 Respiratory Rate 16 Respiratory Rate 16 Respiratory Rate 15 Respiratory Rate 15 Blood Pressure [Left Arm] 126/62 O2 Sat by Pulse Oximetry 94 09/09/22 13:09 09/09/22 14:22 09/09/22 13:39 Respiratory Rate 16 16 Respiratory Effort Normal Non-Labored Normal Non-Labored B.P. 140/64 TEMP 97.8 F Respiration Rate 16 PULSE 69 Sp02 Percentage 99 09/09/22 14:37 09/09/22 14:42 09/09/22 15:39 Respiratory Rate 16 16 Respiratory Effort Normal Non-Labored Normal Non-Labored B.P. 123/86 TEMP 97.9 F Respiration Rate 17 PULSE 65 Sp02 Percentage 99 09/09/22 15:37 Respiratory Rate Respiratory Effort B.P. 148/68 TEMP 98.4 F Respiration Rate 16 PULSE 73 Sp02 Percentage 99 Intake and Output: Intake & Output 09/07/22 09/08/22 09/09/22 09/10/22 11:59 11:59 11:59 11:59 Intake Total 3979 / 3979 4118 / 4118 4065 / 4065 0 / 0 Output Total 1670 / 1670 1600 / 1600 3600 / 3600 1600 / 1600 Balance 2309 / 2309 2518 / 2518 465 / 465 -1600 / -1600 - Physical Exam Oriented: Normal Eyes: Normal Ear: Normal Nose: Normal Throat: Normal Respiratory: Diminished Cardiovascular: Normal : Normal, Other (SUPRAPUBIC CATHETER IN PLACE) Auscultation: Bowel Sounds: Decreased Palpation: Normal Tenderness: Suprapubic, Moderate Skin: Decreased Turgur, Wound (2CM FISSURE TO RIGHT LOWER ABDOMINAL FOLD WITH SCANT DC), Other (DIFFUSE PERINEAL EDEMA) Musculoskeletal: Back:Lumbar Psychiatric: Anxiety Affect: Normal Speech Pattern: Clear, Appropriate - Laboratory and Diagnostics Result Diagrams: 09/09/22 04:00 09/09/22 04:00 Labs: 09/04/22 19:00 Perineal Fluid Wound Culture - Preliminary 09/05/22 20:55 Urine,Catheterized Urine Culture - Final Enterococcus Faecalis Laboratory WBC 1.0 X10^3/uL (3.6-10.0) L* 09/09/22 04:00 RBC 2.84 X10^6/uL (3.5-5.4) L 09/09/22 04:00 Hgb 7.9 g/dL (12.0-16.0) L 09/09/22 04:00 Hct 23.3 % (36.0-47.0) L 09/09/22 04:00 MCV 82.1 fL (80.0-100.0) 09/09/22 04:00 MCH 27.8 pg (27.0-34.0) 09/09/22 04:00 MCHC 33.8 g/dL (33.0-35.0) 09/09/22 04:00 RDW 15.6 % (11.6-16.5) 09/09/22 04:00 Plt Count 26 X10^3/uL (150.0-450.0) L 09/09/22 04:00 Plt Count Comment Decreased (ADEQUATE) A 09/09/22 04:00 MPV 6.5 fL (7.4-11.0) L 09/09/22 04:00 Neut % (Auto) 28.4 % (42.0-75.0) L 09/09/22 04:00 Lymph % (Auto) 40.5 % (21.0-51.0) 09/09/22 04:00 [place] % (Auto) 27.6 % (0.0-13.0) H 09/09/22 04:00 Eos % (Auto) 3.0 % (0.9-2.9) H 09/09/22 04:00 Baso % (Auto) 0.5 % (0.2-1.0) 09/09/22 04:00 Neut # (Auto) 0.3 x10^3/uL (2.2-4.8) L 09/09/22 04:00 Lymph # (Auto) 0.4 X10^3/uL (1.3-2.9) L 09/09/22 04:00 [place] # (Auto) 0.3 x10^3/uL (0.3-0.8) 09/09/22 04:00 Eos # (Auto) 0.0 x10^3/uL (0.0-0.2) 09/09/22 04:00 Baso # (Auto) 0.0 X10^3/uL (0.0-0.1) 09/09/22 04:00 Absolute Nucleated RBC 0.8 /100WBC 09/09/22 04:00 Total Counted 25 09/09/22 04:00 Neutrophils % (Manual) 30 % (39-76) L 09/09/22 04:00 Lymphocytes % (Manual) 36 % (13-43) 09/09/22 04:00 Monocytes % (Manual) 30 % (4-9) H 09/09/22 04:00 Eosinophils % (Manual) 4 % (0-6) 09/09/22 04:00 Plt Morphology Comment Normal (NORMAL) 09/09/22 04:00 RBC Morphology Abnormal (NORMAL) A 09/09/22 04:00 Anisocytosis Slight A 09/09/22 04:00 ESR 46 MM/HOUR (0-20) H 09/08/22 04:20 PT 12.4 SECONDS (11.8-14.3) 09/06/22 04:16 INR Target Range - 09/06/22 04:16 INR 0.95 (0.8-1.3) 09/06/22 04:16 Sodium 142 mmol/L (136-145) 09/09/22 04:00 Corrected Sodium TNP 09/09/22 04:00 Potassium 4.6 mmol/L (3.5-5.1) 09/09/22 04:00 Chloride 106 mmol/L (98-107) 09/09/22 04:00 Carbon Dioxide 31.5 mmol/L (21-32) 09/09/22 04:00 BUN 7 mg/dL (7-18) 09/09/22 04:00 Creatinine 0.86 mg/dL (0.55-1.02) 09/09/22 04:00 Est GFR (MDRD) Af Amer > 60 (>60) 09/09/22 04:00 Est GFR (MDRD) Non-Af > 60 (>60) 09/09/22 04:00 Glucose 90 mg/dL (65-99) 09/09/22 04:00 Calcium 8.5 mg/dL (8.5-10.1) 09/09/22 04:00 Corrected Calcium 9.9 mg/dL (8.5-10.1) 09/09/22 04:00 Magnesium 1.9 mg/dL (2.0-2.9) L 09/09/22 04:00 Total Bilirubin 0.30 mg/dL (0.2-1.0) 09/09/22 04:00 AST 19 Units/L (15-37) 09/09/22 04:00 ALT 23 Units/L (12-78) 09/09/22 04:00 Alkaline Phosphatase 61 Units/L (46-116) 09/09/22 04:00 C-Reactive Protein 72.40 mg/L (0-3.0) H 09/08/22 04:20 Total Protein 5.7 g/dL (6.4-8.2) L 09/09/22 04:00 Albumin 2.2 g/dL (3.4-5.0) L 09/09/22 04:00 Globulin 3.5 g/dL (2.5-4.5) 09/09/22 04:00 Albumin/Globulin Ratio 0.6 Ratio (1.1-2.1) L 09/09/22 04:00 Specimen Type Catherized urine 09/05/22 20:55 Urine Color Yellow (YELLOW) 09/05/22 20:55 Urine Appearance Slightly hazy (CLEAR) 09/05/22 20:55 Urine pH 6.0 (5.0 - 8.0) 09/05/22 20:55 Ur Specific [place] 1.025 (1.000-1.030) 09/05/22 20:55 Urine Protein 2+ (NEGATIVE) 09/05/22 20:55 Urine Glucose (UA) Negative (NEGATIVE) 09/05/22 20:55 Urine Ketones Negative (NEGATIVE) 09/05/22 20:55 Urine Blood 1+ (NEGATIVE) 09/05/22 20:55 Urine Nitrite Negative (NEGATIVE) 09/05/22 20:55 Urine Bilirubin Negative (NEGATIVE) 09/05/22 20:55 Urine Urobilinogen Normal (NORMAL) 09/05/22 20:55 Ur Leukocyte Esterase 1+ (NEGATIVE) 09/05/22 20:55 Urine RBC 0-2 /HPF (0-3) 09/05/22 20:55 Urine WBC 3-5 /HPF (0-5) 09/05/22 20:55 Ur Squamous Epith Cells Negative /HPF (NEGATIVE) 09/05/22 20:55 Amorphous Sediment Trace /HPF (NEGATIVE) 09/05/22 20:55 Urine Bacteria 2+ /HPF (NEGATIVE) 09/05/22 20:55 Ur Culture Indicated? Yes/culture set up 09/05/22 20:55 Blood Type O POSITIVE 09/08/22 10:07 Antibody Screen Negative 09/08/22 10:07 Crossmatch See Detail 09/08/22 10:07 - Plan (1) Primary vulvar cancer Status: Acute Plan: NORMAL SALINE WITH 20 MEQ KCL AT 80 ML/HR, CIPRO 400MG IV Q12H, ZYVOX 600MG IV Q12H, IV TYLENOL 1000MG IV Q6H PRN, DURAGESIC 75MCG/HR PATCH, DILAUDID 2MG IV Q2H PRN, OXYCODONE 20MG QID PNR, BUSPAR 10MG BID, BUPROPION 150MG BID, COLACE 100MG HS, GABAPENTIN 300MG TID, MILK OF MAGNESIA 30ML HS, MAG OX 400MG BID, PROTONIX 40MG DAILY, PHENERGAN 25MG TID PRN (2) Enterococcus UTI Status: Acute (3) Intractable pain Status: Acute (4) Pancytopenia Status: Acute (5) Hypomagnesemia Status: Acute (6) Hypoalbuminemia Status: Acute (7) GERD (gastroesophageal reflux disease) Status: Chronic Qualifiers: Esophagitis presence: esophagitis presence not specified Qualified Code(s): K21.9 - Gastro-esophageal reflux disease without esophagitis (8) DDD (degenerative disc disease) Status: Chronic Qualifiers: Spinal region: lumbosacral Qualified Code(s): M51.37 - Other intervertebral disc degeneration, lumbosacral region (9) Major depressive disorder Status: Chronic Qualifiers: Major depression recurrence: recurrent Active/Remission status: remission status unspecified Qualified Code(s): F33.9 - Major depressive disorder, recurrent, unspecified
[2022-09-09] MEDS: ALBUMIN HUMAN 25%- 100 ML 100 ML IV SCH (17:23)
[2022-09-09 18:47] LABS: HEMATOCRIT 30.8 % (36.0-47.0)
[2022-09-09 18:54] LABS: HEMOGLOBIN 10.4 g/dL (12.0-16.0)
[2022-09-09] MEDS: MILK OF MAGNESIA PO SCH ×2 (20:04→20:06)
[2022-09-09] MEDS: COLACE CAP 100 MG PO SCH (20:05)
[2022-09-10] MEDS: NS + KCL 20 MEQ/L 1,000 ML IV SCH ×3 (03:54→22:23)
[2022-09-10] MEDS: DILAUDID INJ IVP PRN ×7 (03:56→23:39)
[2022-09-10 05:15] LABS: ALANINE AMINOTRANSFERASE 24 Units/L (12-78); ALBUMIN 2.8 g/dL (3.4-5.0); ALKALINE PHOSPHATASE 61 Units/L (46-116); ASPARTATE AMINO TRANSFERASE 18 Units/L (15-37); BLOOD UREA NITROGEN 7 mg/dL (7-18); CALCIUM 8.7 mg/dL (8.5-10.1); CARBON DIOXIDE 29.9 mmol/L (21-32); CHLORIDE 107 mmol/L (98-107); COR CA(FOR HYPOALB) 9.7 mg/dL (8.5-10.1); CREATININE 0.89 mg/dL (0.55-1.02); GLUCOSE 82 mg/dL (65-99); MAGNESIUM 2.1 mg/dL (2.0-2.9); POTASSIUM 4.5 mmol/L (3.5-5.1); SODIUM 144 mmol/L (136-145); TOTAL PROTEIN 6.1 g/dL (6.4-8.2); eGFR NON BLACK RACES > 60 (>60)
[2022-09-10 05:19] LABS: BASOPHILS % (AUTO) 0.4 % (0.2-1.0); EOSINOPHILS % (AUTO) 1.8 % (0.9-2.9); HEMATOCRIT 26.9 % (36.0-47.0); HEMOGLOBIN 9.1 g/dL (12.0-16.0); LYMPHOCYTES # (AUTO) 0.4 X10^3/uL (1.3-2.9); LYMPHOCYTES % (AUTO) 33.3 % (21.0-51.0); MEAN CORPUSCULAR HEMOGLOBIN 28.6 pg (27.0-34.0); MEAN CORPUSCULAR HGB CONC 33.7 g/dL (33.0-35.0); MEAN CORPUSCULAR VOLUME 84.7 fL (80.0-100.0); MEAN PLATELET VOLUME 6.7 fL (7.4-11.0); MONOCYTES # (AUTO) 0.2 x10^3/uL (0.3-0.8); MONOCYTES % (AUTO) 17.2 % (0.0-13.0); NEUTROPHILS # (AUTO) 0.5 x10^3/uL (2.2-4.8); NEUTROPHILS % (AUTO) 47.3 % (42.0-75.0); PLATELET COUNT 25 X10^3/uL (150.0-450.0); RED BLOOD COUNT 3.18 X10^6/uL (3.5-5.4); RED CELL DISTRIBUTION WIDTH 16.8 % (11.6-16.5)
[2022-09-10 05:22] LABS: WHITE BLOOD COUNT 1.2 X10^3/uL (3.6-10.0)
[2022-09-10] MEDS: NEURONTIN CAP 300 MG PO SCH ×3 (06:00→22:24)
[2022-09-10] MEDS: CIPRO IV 400 MG PREMIX* 400 MG/200 ML IV.SOLN. IV SCH (08:07)
[2022-09-10] MEDS: MAG-OX TAB PO SCH ×2 (09:11→20:29)
[2022-09-10] MEDS: BUSPAR PO SCH ×2 (09:11→20:30)
[2022-09-10] MEDS: PROTONIX TAB 40 MG PO SCH (09:11)
[2022-09-10] MEDS: WELLBUTRIN SR 150 MG (BID) PO SCH ×2 (09:12→20:29)
[2022-09-10] MEDS: ALBUMIN HUMAN 25%- 100 ML 100 ML IV SCH (09:18)
[2022-09-10] MEDS ORDERED: DURAGESIC 100 mcg/HR PATCH TD SCH (10:00)
--- NOTE | 2022-09-10 10:16 | PCM.PROG ---
Progress Note - Progress Note for Day of Date of Exam: 09/10/22 - Subjective Subjective: IS A 62 YEAR OLD PATIENT OF OURS. 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 SHE IS CURRENTLY INPATIENT STATUS FOR TREATMENT OF INTRACTABLE PAIN TO THE PERINEAL AREA, PANCYTOPENIA, ANEMIA, HYPOMAGNESEMIA, AND UTI DUE TO ENTEROCOCCUS FAECALIS. SHE IS ON REVERSE ISOLATION PRECAUTIONS. SHE HAS RECEIVED A TOTAL OF TWO UNITS OF PACKED RED BLOOD CELLS SINCE ADMISSION. SHE IS CURRENTLY UNDER THE CARE OF FOR CHEMOTHERAPY. SHE HAD RADIATION IN THE PAST. SHE HAS BEEN ON OXYCODONE AND A DURAGESIC PATCH PRIOR TO ADMISSION, BUT THEY WERE NOT CONTROLLING HER PAIN. TODAY, SHE IS ALERT AND ORIENTED, SITTING UP IN BED ON MORNING ROUNDS. SHE CONTINUES TO COMPLAIN OF PERSISTENT PAIN AND SWELLING OF THE PERINEUM THAT HASNT IMPROVED MUCH SINCE ADMISSION, EVEN WITH ADDING THE LIDOCAINE OINTMENT YE STERDAY. ON EXAMINATION, HEART IS REGULAR IN RATE AND RHYTHM. BILATERAL LUNGS ARE NOTED WITH DIMINISHED LUNG SOUNDS THROUGHOUT. ABDOMEN IS ROUND, SOFT, AND NON-TENDER WITH HYPOACTIVE BOWEL SOUNDS NOTED. SUPRAPUBIC CATHETER NOTED. DIFFUSE PERINEAL EDEMA NOTED FOLLOWING HER RECENT VULVECTOMY. NO REDNESS NOTED. GOOD MOVEMENT NOTED TO UPPER AND LOWER EXTREMITIES WITH NO EDEMA NOTED. HER VITALS THIS MORNING WERE: 98.4-81-20-95%-137/62. LABS WERE OBTAINED. WBC 1.2, RBC 3.18, HGB 9.1, HCT 26.9, PLT COUNT 25, SODIUM 144, POTASSIUM 4.5, CHLORIDE 107, BUN 7, CREATININE 0.89, GLUCOSE 82, CALCIUM 8.7, MAGNESIUM 2.1, AST 18, ALT 24, ALK PHOS 61, TOTAL PROTEIN 6.1, ALBUMIN 2.8. , OB-OUTSIDE PHYSICAL DAMAGE APPRAISER, CONSULTED WITH PATIENT YESTERDAY AND ORDERED A PELVIS CT. IT REVEALED: 1. Approximately 5.8 cm AP by 1.7 cm transverse by 3.1 cm CC asymmetrical enlargement and relative lucency (8.1 HU) of the left labia minora; DDx includes infectious process with developing phlegmon or abscess in the appropriate clinical setting; cannot rule out neoplastic lesion (with possible tissue necrosis). 2. Extensive soft tissue edema and swelling seen throughout the bilateral labia majora, contiguous anterior and lateral pelvic wall, and contiguous anterior/medial/lateral thighs; DDx includes infectious process osteomyelitis in the appropriate clinical setting; consider anasarca; rule out third spacing secondary to hypoalbuminemia or hypervolemia. 3. A suprapubic Bang balloon catheter is noted with the distal tip/bulb within a collapsed urinary bladder. 4. Approximately 6.7 cm CC by 2.6 cm transverse by 2.9 cm AP right inguinal hernia containing omental fat with streaky density and complex appearing interst itial fluid seen within the distal hernia fat; similar-appearing but smaller left inguinal hernia, measuring approximately 7 cm CC by 2.6 cm transverse by 2.2 cm AP, containing omental fat with complex interstitial fluid in the distal aspect of the hernia; DDx includes infectious processes and/or postinflammatory changes; cannot rule out fat necrosis. 5. L5/S1: Severe DDD(with up to 5.6 mm posterior disc bulge) and severe bilateral hypertrophic facet joint DJD contributing to severe lateral recess, spinal canal stenosis with probable L5 nerve root impingements. WE WILL PASS THESE RESULTS ON TO AND HER GYNECOLOGIC ONCOLOGY TEAM. SHE IS CURRENTLY RECEIVING NORMAL SALINE WITH 20 MEQ KCL AT 80 ML/HR, ZYVOX 600MG IV Q12H, ALBUMIN 25% IV DAILY, LIDOCAINE OINTMENT TO PERINEUM PRN, IV TYLENOL 1000MG IV Q6H PRN, DURAGESIC 75MCG/HR PATCH, DILAUDID 2MG IV Q2H PRN, OXYCODONE 20MG QID PNR, BUSPAR 10MG BID, BUPROPION 150MG BID, COLACE 100MG HS, GABAPENTIN 300MG TID, MILK OF MAGNESIA 30ML HS, MAG OX 400MG BID, PROTONIX 40MG DAILY, PHENERGAN 25MG TID PRN. TODAY, WE WILL INCREASE HER FENTANYL PATCH TO 100MCG. OTHERWISE, WE WILL FOLLOW-UP WITH AM LABS AND CONTINUE TO MONITOR. TIME SPENT ON CLINICAL ASSESSMENT, REVIEWING LABS AND IMAGING, DECISION MAKING, AND DOCUMENTATION GREATER THAN 45 MINUTES. - Past Medical Family Social History Past Med/Fam/Surg Hx: No changes since H&P Allergies: Allergies No Known Drug Allergies Allergy (Verified 02/25/18 22:45) - Review of Systems ROS: No change since H&P - Vital Signs and I&O's Vital Signs: Vital Signs Temperature 98.4 F Temperature 98.3 F Pulse Rate [Apical] 81 Pulse Rate [Apical] 75 Respiratory Rate 20 Respiratory Rate 20 Respiratory Rate 20 Respiratory Rate 20 Respiratory Rate 20 Respiratory Rate 20 Blood Pressure [Left Arm] 137/62 Blood Pressure [Left Arm] 126/59 O2 Sat by Pulse Oximetry 95 O2 Sat by Pulse Oximetry 98 09/10/22 07:48 09/10/22 08:11 09/10/22 08:41 Temperature 98.4 F Temperature Source Oral Pulse Rate [Apical] 81 Respiratory Rate 20 20 20 Respiratory Effort Normal Non-Labored Normal Non-Labored O2 Sat by Pulse Oximetry 95 Oxygen Delivery Method Room Air Blood Pressure [Left Arm] 137/62 Blood Pressure Mean [Left Arm] 87 Blood Pressure Source [Left Arm] Automatic Cuff Intake and Output: Intake & Output 09/07/22 09/08/22 09/09/22 09/10/22 11:59 11:59 11:59 11:59 Intake Total 3979 / 3979 4118 / 4118 4065 / 4065 3999 / 3999 Output Total 1670 / 1670 1600 / 1600 3600 / 3600 3925 / 3925 Balance 2309 / 2309 2518 / 2518 465 / 465 74 / 74 - Physical Exam Oriented: Normal Eyes: Normal Ear: Normal Nose: Normal Throat: Normal Respiratory: Diminished Cardiovascular: Normal : Normal, Other (SUPRAPUBIC CATHETER IN PLACE) Auscultation: Bowel Sounds: Decreased Palpation: Normal Tenderness: Suprapubic, Moderate Skin: Decreased Turgur, Wound (2CM FISSURE TO RIGHT LOWER ABDOMINAL FOLD WITH SCANT DC), Other (DIFFUSE PERINEAL EDEMA) Musculoskeletal: Back:Lumbar Psychiatric: Anxiety Affect: Normal Speech Pattern: Clear, Appropriate - Laboratory and Diagnostics Result Diagrams: 09/10/22 04:25 09/10/22 04:25 Labs: 09/04/22 19:00 Perineal Fluid Wound Culture - Preliminary 09/05/22 20:55 Urine,Catheterized Urine Culture - Final Enterococcus Faecalis Laboratory WBC 1.2 X10^3/uL (3.6-10.0) L* 09/10/22 04:25 RBC 3.18 X10^6/uL (3.5-5.4) L 09/10/22 04:25 Hgb 9.1 g/dL (12.0-16.0) L 09/10/22 04:25 Hct 26.9 % (36.0-47.0) L 09/10/22 04:25 MCV 84.7 fL (80.0-100.0) 09/10/22 04:25 MCH 28.6 pg (27.0-34.0) 09/10/22 04:25 MCHC 33.7 g/dL (33.0-35.0) 09/10/22 04:25 RDW 16.8 % (11.6-16.5) H 09/10/22 04:25 Plt Count 25 X10^3/uL (150.0-450.0) L 09/10/22 04:25 Plt Count Comment Decreased (ADEQUATE) A 09/09/22 04:00 MPV 6.7 fL (7.4-11.0) L 09/10/22 04:25 Neut % (Auto) 47.3 % (42.0-75.0) 09/10/22 04:25 Lymph % (Auto) 33.3 % (21.0-51.0) 09/10/22 04:25 [place] % (Auto) 17.2 % (0.0-13.0) H 09/10/22 04:25 Eos % (Auto) 1.8 % (0.9-2.9) 09/10/22 04:25 Baso % (Auto) 0.4 % (0.2-1.0) 09/10/22 04:25 Neut # (Auto) 0.5 x10^3/uL (2.2-4.8) L 09/10/22 04:25 Lymph # (Auto) 0.4 X10^3/uL (1.3-2.9) L 09/10/22 04:25 [place] # (Auto) 0.2 x10^3/uL (0.3-0.8) L 09/10/22 04:25 Eos # (Auto) 0.0 x10^3/uL (0.0-0.2) 09/10/22 04:25 Baso # (Auto) 0.0 X10^3/uL (0.0-0.1) 09/10/22 04:25 Absolute Nucleated RBC 0.1 /100WBC 09/10/22 04:25 Total Counted 25 09/09/22 04:00 Neutrophils % (Manual) 30 % (39-76) L 09/09/22 04:00 Lymphocytes % (Manual) 36 % (13-43) 09/09/22 04:00 Monocytes % (Manual) 30 % (4-9) H 09/09/22 04:00 Eosinophils % (Manual) 4 % (0-6) 09/09/22 04:00 Plt Morphology Comment Normal (NORMAL) 09/09/22 04:00 RBC Morphology Abnormal (NORMAL) A 09/09/22 04:00 Anisocytosis Slight A 09/09/22 04:00 ESR 46 MM/HOUR (0-20) H 09/08/22 04:20 PT 12.4 SECONDS (11.8-14.3) 09/06/22 04:16 INR Target Range - 09/06/22 04:16 INR 0.95 (0.8-1.3) 09/06/22 04:16 Sodium 144 mmol/L (136-145) 09/10/22 04:25 Corrected Sodium TNP 09/10/22 04:25 Potassium 4.5 mmol/L (3.5-5.1) 09/10/22 04:25 Chloride 107 mmol/L (98-107) 09/10/22 04:25 Carbon Dioxide 29.9 mmol/L (21-32) 09/10/22 04:25 BUN 7 mg/dL (7-18) 09/10/22 04:25 Creatinine 0.89 mg/dL (0.55-1.02) 09/10/22 04:25 Est GFR (MDRD) Af Amer > 60 (>60) 09/10/22 04:25 Est GFR (MDRD) Non-Af > 60 (>60) 09/10/22 04:25 Glucose 82 mg/dL (65-99) 09/10/22 04:25 Calcium 8.7 mg/dL (8.5-10.1) 09/10/22 04:25 Corrected Calcium 9.7 mg/dL (8.5-10.1) 09/10/22 04:25 Magnesium 2.1 mg/dL (2.0-2.9) 09/10/22 04:25 Total Bilirubin 0.50 mg/dL (0.2-1.0) 09/10/22 04:25 AST 18 Units/L (15-37) 09/10/22 04:25 ALT 24 Units/L (12-78) 09/10/22 04:25 Alkaline Phosphatase 61 Units/L (46-116) 09/10/22 04:25 C-Reactive Protein 72.40 mg/L (0-3.0) H 09/08/22 04:20 Total Protein 6.1 g/dL (6.4-8.2) L 09/10/22 04:25 Albumin 2.8 g/dL (3.4-5.0) L 09/10/22 04:25 Globulin 3.3 g/dL (2.5-4.5) 09/10/22 04:25 Albumin/Globulin Ratio 0.8 Ratio (1.1-2.1) L 09/10/22 04:25 Specimen Type Catherized urine 09/05/22 20:55 Urine Color Yellow (YELLOW) 09/05/22 20:55 Urine Appearance Slightly hazy (CLEAR) 09/05/22 20:55 Urine pH 6.0 (5.0 - 8.0) 09/05/22 20:55 Ur Specific [place] 1.025 (1.000-1.030) 09/05/22 20:55 Urine Protein 2+ (NEGATIVE) 09/05/22 20:55 Urine Glucose (UA) Negative (NEGATIVE) 09/05/22 20:55 Urine Ketones Negative (NEGATIVE) 09/05/22 20:55 Urine Blood 1+ (NEGATIVE) 09/05/22 20:55 Urine Nitrite Negative (NEGATIVE) 09/05/22 20:55 Urine Bilirubin Negative (NEGATIVE) 09/05/22 20:55 Urine Urobilinogen Normal (NORMAL) 09/05/22 20:55 Ur Leukocyte Esterase 1+ (NEGATIVE) 09/05/22 20:55 Urine RBC 0-2 /HPF (0-3) 09/05/22 20:55 Urine WBC 3-5 /HPF (0-5) 09/05/22 20:55 Ur Squamous Epith Cells Negative /HPF (NEGATIVE) 09/05/22 20:55 Amorphous Sediment Trace /HPF (NEGATIVE) 09/05/22 20:55 Urine Bacteria 2+ /HPF (NEGATIVE) 09/05/22 20:55 Ur Culture Indicated? Yes/culture set up 09/05/22 20:55 Blood Type O POSITIVE 09/08/22 10:07 Antibody Screen Negative 09/08/22 10:07 Crossmatch See Detail 09/08/22 10:07 - Plan (1) Primary vulvar cancer Status: Acute Plan: NORMAL SALINE WITH 20 MEQ KCL AT 80 ML/HR, ALBUMIN 25% IV DAILY, ZYVOX 600MG IV Q12H, IV TYLENOL 1000MG IV Q6H PRN, DURAGESIC 100MCG/HR PATCH, DILAUDID 2MG IV Q2H PRN, OXYCODONE 20MG QID PNR, BUSPAR 10MG BID, BUPROPION 150MG BID, COLACE 100MG HS, GABAPENTIN 300MG TID, MILK OF MAGNESIA 30ML HS, MAG OX 400MG BID, PROTONIX 40MG DAILY, PHENERGAN 25MG TID PRN (2) Enterococcus UTI Status: Acute (3) Intractable pain Status: Acute (4) Pancytopenia Status: Acute (5) Hypomagnesemia Status: Acute (6) Hypoalbuminemia Status: Acute (7) GERD (gastroesophageal reflux disease) Status: Chronic Qualifiers: Esophagitis presence: esophagitis presence not specified Qualified Code(s): K21.9 - Gastro-esophageal reflux disease without esophagitis (8) DDD (degenerative disc disease) Status: Chronic Qualifiers: Spinal region: lumbosacral Qualified Code(s): M51.37 - Other intervertebral disc degeneration, lumbosacral region (9) Major depressive disorder Status: Chronic Qualifiers: Major depression recurrence: recurrent Active/Remission status: remission status unspecified Qualified Code(s): F33.9 - Major depressive disorder, recurrent, unspecified
[2022-09-10] MEDS: ZYVOX 600MG IV 600 MG/300 ML BAG IV SCH ×2 (10:35→20:31)
[2022-09-10] MEDS: ROXICODONE TAB 5 MG PO PRN (18:58)
[2022-09-10] MEDS: COLACE CAP 100 MG PO SCH (21:27)
[2022-09-10] MEDS: MILK OF MAGNESIA PO SCH (22:24)
[2022-09-11] MEDS: NS + KCL 20 MEQ/L 1,000 ML IV SCH ×3 (02:33→20:43)
[2022-09-11] MEDS: NEURONTIN CAP 300 MG PO SCH ×3 (05:17→21:11)
[2022-09-11 05:39] LABS: ALANINE AMINOTRANSFERASE 26 Units/L (12-78); ALBUMIN 2.9 g/dL (3.4-5.0); ALKALINE PHOSPHATASE 65 Units/L (46-116); ASPARTATE AMINO TRANSFERASE 17 Units/L (15-37); BASOPHILS % (AUTO) 0.6 % (0.2-1.0); BLOOD UREA NITROGEN 8 mg/dL (7-18); CALCIUM 8.5 mg/dL (8.5-10.1); CARBON DIOXIDE 33.1 mmol/L (21-32); CHLORIDE 105 mmol/L (98-107); COR CA(FOR HYPOALB) 9.4 mg/dL (8.5-10.1); CREATININE 0.86 mg/dL (0.55-1.02); EOSINOPHILS % (AUTO) 1.5 % (0.9-2.9); GLUCOSE 79 mg/dL (65-99); HEMATOCRIT 26.6 % (36.0-47.0); HEMOGLOBIN 9.1 g/dL (12.0-16.0); LYMPHOCYTES # (AUTO) 0.4 X10^3/uL (1.3-2.9); LYMPHOCYTES % (AUTO) 26.1 % (21.0-51.0); MEAN CORPUSCULAR HGB CONC 34.2 g/dL (33.0-35.0); MEAN CORPUSCULAR VOLUME 84.8 fL (80.0-100.0); MEAN PLATELET VOLUME 6.8 fL (7.4-11.0); MONOCYTES # (AUTO) 0.2 x10^3/uL (0.3-0.8); MONOCYTES % (AUTO) 10.2 % (0.0-13.0); NEUTROPHILS # (AUTO) 0.9 x10^3/uL (2.2-4.8); NEUTROPHILS % (AUTO) 61.6 % (42.0-75.0); POTASSIUM 4.5 mmol/L (3.5-5.1); RED BLOOD COUNT 3.13 X10^6/uL (3.5-5.4); RED CELL DISTRIBUTION WIDTH 17.1 % (11.6-16.5); SODIUM 142 mmol/L (136-145); TOTAL PROTEIN 6.1 g/dL (6.4-8.2); eGFR NON BLACK RACES > 60 (>60)
[2022-09-11 05:44] LABS: WHITE BLOOD COUNT 1.5 X10^3/uL (3.6-10.0)
[2022-09-11 05:45] LABS: PLATELET COUNT 19 X10^3/uL (150.0-450.0)
[2022-09-11] MEDS: ZYVOX 600MG IV 600 MG/300 ML BAG IV SCH ×2 (08:12→20:44)
[2022-09-11] MEDS: ALBUMIN HUMAN 25%- 100 ML 100 ML IV SCH (08:12)
[2022-09-11] MEDS: BUSPAR PO SCH ×2 (08:12→20:44)
[2022-09-11] MEDS: PROTONIX TAB 40 MG PO SCH (08:12)
[2022-09-11] MEDS: WELLBUTRIN SR 150 MG (BID) PO SCH ×2 (08:12→20:46)
[2022-09-11] MEDS: MAG-OX TAB PO SCH ×2 (08:13→20:45)
[2022-09-11] MEDS: ROXICODONE TAB 5 MG PO PRN ×3 (08:16→20:47)
[2022-09-11] MEDS: DILAUDID INJ IVP PRN ×4 (08:54→23:40)
[2022-09-11] MEDS: SOLU-Medrol 40 MG VIAL IVP SCH ×3 (09:46→21:11)
--- NOTE | 2022-09-11 10:26 | PCM.PROG ---
Progress Note - Progress Note for Day of Date of Exam: 09/11/22 - Subjective Subjective: IS A 62 YEAR OLD PATIENT OF OURS. 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 SHE IS CURRENTLY INPATIENT STATUS FOR TREATMENT OF INTRACTABLE PAIN TO THE PERINEAL AREA, PANCYTOPENIA, ANEMIA, HYPOMAGNESEMIA, AND UTI DUE TO ENTEROCOCCUS FAECALIS. SHE IS ON REVERSE ISOLATION PRECAUTIONS. SHE HAS RECEIVED A TOTAL OF TWO UNITS OF PACKED RED BLOOD CELLS SINCE ADMISSION. SHE IS CURRENTLY UNDER THE CARE OF FOR CHEMOTHERAPY. SHE HAD RADIATION IN THE PAST. SHE HAS BEEN ON OXYCODONE AND A DURAGESIC PATCH PRIOR TO ADMISSION, BUT THEY WERE NOT CONTROLLING HER PAIN. TODAY, SHE IS ALERT AND ORIENTED, SITTING UP IN BED ON MORNING ROUNDS. SHE CONTINUES TO COMPLAIN OF PERSISTENT PAIN AND SWELLING OF THE PERINEUM THAT HASNT IMPROVED MUCH SINCE ADMISSION, EVEN WITH ADDING THE LIDOCAINE OINTMENT AN D INCREASING HER FENTANYL PATCH YESTERDAY. ON EXAMINATION, HEART IS REGULAR IN RATE AND RHYTHM. BILATERAL LUNGS ARE NOTED WITH DIMINISHED LUNG SOUNDS THROUGHOUT. ABDOMEN IS ROUND, SOFT, AND NON-TENDER WITH HYPOACTIVE BOWEL SOUNDS NOTED. SUPRAPUBIC CATHETER NOTED. DIFFUSE PERINEAL EDEMA NOTED FOLLOWING HER RECENT VULVECTOMY. NO REDNESS NOTED. GOOD MOVEMENT NOTED TO UPPER AND LOWER EXTREMITIES WITH NO EDEMA NOTED. HER VITALS THIS MORNING WERE: 99.3-98-20-91%-143/83. LABS WERE OBTAINED. WBC 1.5, RBC 3.13, HGB 9.1, HCT 26.6, PLT COUNT 19, SODIUM 142, POTASSIUM 4.5, CHLORIDE 105, CARBON DIOXIDE 33.1, BUN 8, CREATININE 0.86, GLUCOSE 79, CALCIUM 8.5, AST 17, ALT 26, ALK PHOS 65, CRP 53.80, TOTAL PROTEIN 6.1, ALBUMIN 2.9. A PELVIS CT WAS OBTAINED ON 09/09. IT REVEALED: 1. Approximately 5.8 cm AP by 1.7 cm transverse by 3.1 cm CC asymmetrical enlargement and relative lucency (8.1 HU) of the left labia minora; DDx includes infectious process with developing phlegmon or abscess in the appropriate clinical setting; cannot rule out neoplastic lesion (with possible tissue necrosis). 2. Extensive soft tissue edema and swelling seen throughout the bilateral labia majora, contiguous anterior and lateral pelvic wall, and contiguous anterior/medial/lateral thighs; DDx includes infectious process o steomyelitis in the appropriate clinical setting; consider anasarca; rule out third spacing secondary to hypoalbuminemia or hypervolemia. 3. A suprapubic Bang balloon catheter is noted with the distal tip/bulb within a collapsed urinary bladder. 4. Approximately 6.7 cm CC by 2.6 cm transverse by 2.9 cm AP right inguinal hernia containing omental fat with streaky density and complex appearing interstitial fluid seen within the distal hernia fat; similar- appearing but smaller left inguinal hernia, measuring approximately 7 cm CC by 2.6 cm transverse by 2.2 cm AP, containing omental fat with complex interstitial fluid in the distal aspect of the hernia; DDx includes infectious processes and/ or postinflammatory changes; cannot rule out fat necrosis. 5. L5/S1: Severe DDD(with up to 5.6 mm posterior disc bulge) and severe bilateral hypertrophic facet joint DJD contributing to severe lateral recess, spinal canal stenosis with probable L5 nerve root impingements. WE WILL PASS THESE RESULTS ON TO AND HER GYNECOLOGIC ONCOLOGY TEAM. WE WILL OBTAIN A PELVIS MRI FOR CT FOLLOW-UP. SHE IS CURRENTLY RECEIVING NORMAL SALINE WITH 20 MEQ KCL AT 80 ML/HR, ZYVOX 600MG IV Q12H, ALBUMIN 25% IV DAILY, LIDOCAINE OINTMENT TO PERINEUM PRN, IV TYLENOL 1000MG IV Q6H PRN, DURAGESIC 100 MCG/HR PATCH, DILAUDID 2MG IV Q2H PRN, OXYCODONE 20MG QID PNR, BUSPAR 10MG BID, BUPROPION 150MG BID, COLACE 100MG HS, GABAPENTIN 300MG TID, MILK OF MAGNESIA 30ML HS, MAG OX 400MG BID, PROTONIX 40MG DAILY, PHENERGAN 25MG TID PRN. TODAY, WE WILL ADD SOLU-MEDROL 40MG IV Q8H. OTHERWISE, WE WILL FOLLOW-UP WITH AM LABS AND CONTINUE TO MONITOR. TIME SPENT ON CLINICAL ASSESSMENT, REVIEWING LABS AND IMAGING, DECISION MAKING, AND DOCUMENTATION GREATER THAN 45 MINUTES. - Past Medical Family Social History Past Med/Fam/Surg Hx: No changes since H&P Allergies: Allergies No Known Drug Allergies Allergy (Verified 02/25/18 22:45) - Review of Systems ROS: No change since H&P - Vital Signs and I&O's Vital Signs: Vital Signs Temperature 99.3 F Temperature 98.9 F Pulse Rate [Apical] 98 Pulse Rate [Apical] 79 Respiratory Rate 20 Respiratory Rate 20 Respiratory Rate 20 Respiratory Rate 20 Respiratory Rate 20 Respiratory Rate 20 Blood Pressure [Left Arm] 143/83 Blood Pressure [Left Arm] 160/80 O2 Sat by Pulse Oximetry 91 O2 Sat by Pulse Oximetry 95 09/11/22 07:57 09/11/22 08:16 09/11/22 08:54 Temperature 99.3 F Temperature Source Oral Pulse Rate [Apical] 98 H Pulse Rhythm [Bilateral Radial] Pulse Strength [Bilateral Radial] Pulse Assessment Method [Apical] Dinamap Respiratory Rate 20 20 20 Respiratory Depth Respiratory Effort Normal Non-Labored Normal Non-Labored Respiratory Pattern O2 Sat by Pulse Oximetry 91 L Oxygen Delivery Method Room Air Blood Pressure [Left Arm] 143/83 Blood Pressure Mean [Left Arm] 103 Blood Pressure Source [Left Arm] Automatic Cuff 09/11/22 07:00 09/11/22 09:13 09/11/22 09:23 Temperature Temperature Source Pulse Rate [Apical] Pulse Rhythm [Bilateral Radial] Regular Pulse Strength [Bilateral Radial] Normal Pulse Assessment Method [Apical] Respiratory Rate 20 20 Respiratory Depth Normal Respiratory Effort Normal Non-Labored Normal Non-Labored Normal Non-Labored Respiratory Pattern Normal O2 Sat by Pulse Oximetry Oxygen Delivery Method Room Air Blood Pressure [Left Arm] Blood Pressure Mean [Left Arm] Blood Pressure Source [Left Arm] Intake and Output: Intake & Output 09/08/22 09/09/22 09/10/22 09/11/22 11:59 11:59 11:59 11:59 Intake Total 4118 / 4118 4065 / 4065 3999 / 3999 3421 / 3421 Output Total 1600 / 1600 3600 / 3600 3925 / 3925 3050 / 3050 Balance 2518 / 2518 465 / 465 74 / 74 371 / 371 - Physical Exam Oriented: Normal Eyes: Normal Ear: Normal Nose: Normal Throat: Normal Respiratory: Diminished Cardiovascular: Normal : Normal, Other (SUPRAPUBIC CATHETER IN PLACE) Auscultation: Bowel Sounds: Decreased Palpation: Normal Tenderness: Suprapubic, Moderate Skin: Decreased Turgur, Wound (2CM FISSURE TO RIGHT LOWER ABDOMINAL FOLD WITH SCANT DC), Other (DIFFUSE PERINEAL EDEMA) Musculoskeletal: Back:Lumbar Psychiatric: Anxiety Affect: Normal Speech Pattern: Clear, Appropriate - Laboratory and Diagnostics Result Diagrams: 09/11/22 04:10 09/11/22 04:10 Labs: 09/04/22 19:00 Perineal Fluid Wound Culture - Preliminary 09/05/22 20:55 Urine,Catheterized Urine Culture - Final Enterococcus Faecalis Laboratory WBC 1.5 X10^3/uL (3.6-10.0) L* 09/11/22 04:10 RBC 3.13 X10^6/uL (3.5-5.4) L 09/11/22 04:10 Hgb 9.1 g/dL (12.0-16.0) L 09/11/22 04:10 Hct 26.6 % (36.0-47.0) L 09/11/22 04:10 MCV 84.8 fL (80.0-100.0) 09/11/22 04:10 MCH 29.0 pg (27.0-34.0) 09/11/22 04:10 MCHC 34.2 g/dL (33.0-35.0) 09/11/22 04:10 RDW 17.1 % (11.6-16.5) H 09/11/22 04:10 Plt Count 19 X10^3/uL (150.0-450.0) L* 09/11/22 04:10 Plt Count Comment Decreased (ADEQUATE) A 09/09/22 04:00 MPV 6.8 fL (7.4-11.0) L 09/11/22 04:10 Neut % (Auto) 61.6 % (42.0-75.0) 09/11/22 04:10 Lymph % (Auto) 26.1 % (21.0-51.0) 09/11/22 04:10 [place] % (Auto) 10.2 % (0.0-13.0) 09/11/22 04:10 Eos % (Auto) 1.5 % (0.9-2.9) 09/11/22 04:10 Baso % (Auto) 0.6 % (0.2-1.0) 09/11/22 04:10 Neut # (Auto) 0.9 x10^3/uL (2.2-4.8) L 09/11/22 04:10 Lymph # (Auto) 0.4 X10^3/uL (1.3-2.9) L 09/11/22 04:10 [place] # (Auto) 0.2 x10^3/uL (0.3-0.8) L 09/11/22 04:10 Eos # (Auto) 0.0 x10^3/uL (0.0-0.2) 09/11/22 04:10 Baso # (Auto) 0.0 X10^3/uL (0.0-0.1) 09/11/22 04:10 Absolute Nucleated RBC 0.2 /100WBC 09/11/22 04:10 Total Counted 25 09/09/22 04:00 Neutrophils % (Manual) 30 % (39-76) L 09/09/22 04:00 Lymphocytes % (Manual) 36 % (13-43) 09/09/22 04:00 Monocytes % (Manual) 30 % (4-9) H 09/09/22 04:00 Eosinophils % (Manual) 4 % (0-6) 09/09/22 04:00 Plt Morphology Comment Normal (NORMAL) 09/09/22 04:00 RBC Morphology Abnormal (NORMAL) A 09/09/22 04:00 Anisocytosis Slight A 09/09/22 04:00 ESR 46 MM/HOUR (0-20) H 09/08/22 04:20 PT 12.4 SECONDS (11.8-14.3) 09/06/22 04:16 INR Target Range - 09/06/22 04:16 INR 0.95 (0.8-1.3) 09/06/22 04:16 Sodium 142 mmol/L (136-145) 09/11/22 04:10 Corrected Sodium TNP 09/11/22 04:10 Potassium 4.5 mmol/L (3.5-5.1) 09/11/22 04:10 Chloride 105 mmol/L (98-107) 09/11/22 04:10 Carbon Dioxide 33.1 mmol/L (21-32) H 09/11/22 04:10 BUN 8 mg/dL (7-18) 09/11/22 04:10 Creatinine 0.86 mg/dL (0.55-1.02) 09/11/22 04:10 Est GFR (MDRD) Af Amer > 60 (>60) 09/11/22 04:10 Est GFR (MDRD) Non-Af > 60 (>60) 09/11/22 04:10 Glucose 79 mg/dL (65-99) 09/11/22 04:10 Calcium 8.5 mg/dL (8.5-10.1) 09/11/22 04:10 Corrected Calcium 9.4 mg/dL (8.5-10.1) 09/11/22 04:10 Magnesium 2.1 mg/dL (2.0-2.9) 09/10/22 04:25 Total Bilirubin 0.40 mg/dL (0.2-1.0) 09/11/22 04:10 AST 17 Units/L (15-37) 09/11/22 04:10 ALT 26 Units/L (12-78) 09/11/22 04:10 Alkaline Phosphatase 65 Units/L (46-116) 09/11/22 04:10 C-Reactive Protein 53.80 mg/L (0-3.0) H 09/11/22 04:10 Total Protein 6.1 g/dL (6.4-8.2) L 09/11/22 04:10 Albumin 2.9 g/dL (3.4-5.0) L 09/11/22 04:10 Globulin 3.2 g/dL (2.5-4.5) 09/11/22 04:10 Albumin/Globulin Ratio 0.9 Ratio (1.1-2.1) L 09/11/22 04:10 Specimen Type Catherized urine 09/05/22 20:55 Urine Color Yellow (YELLOW) 09/05/22 20:55 Urine Appearance Slightly hazy (CLEAR) 09/05/22 20:55 Urine pH 6.0 (5.0 - 8.0) 09/05/22 20:55 Ur Specific [place] 1.025 (1.000-1.030) 09/05/22 20:55 Urine Protein 2+ (NEGATIVE) 09/05/22 20:55 Urine Glucose (UA) Negative (NEGATIVE) 09/05/22 20:55 Urine Ketones Negative (NEGATIVE) 09/05/22 20:55 Urine Blood 1+ (NEGATIVE) 09/05/22 20:55 Urine Nitrite Negative (NEGATIVE) 09/05/22 20:55 Urine Bilirubin Negative (NEGATIVE) 09/05/22 20:55 Urine Urobilinogen Normal (NORMAL) 09/05/22 20:55 Ur Leukocyte Esterase 1+ (NEGATIVE) 09/05/22 20:55 Urine RBC 0-2 /HPF (0-3) 09/05/22 20:55 Urine WBC 3-5 /HPF (0-5) 09/05/22 20:55 Ur Squamous Epith Cells Negative /HPF (NEGATIVE) 09/05/22 20:55 Amorphous Sediment Trace /HPF (NEGATIVE) 09/05/22 20:55 Urine Bacteria 2+ /HPF (NEGATIVE) 09/05/22 20:55 Ur Culture Indicated? Yes/culture set up 09/05/22 20:55 Blood Type O POSITIVE 09/08/22 10:07 Antibody Screen Negative 09/08/22 10:07 Crossmatch See Detail 09/08/22 10:07 - Plan (1) Primary vulvar cancer Status: Acute Plan: NORMAL SALINE WITH 20 MEQ KCL AT 80 ML/HR, ALBUMIN 25% IV DAILY, ZYVOX 600MG IV Q12H, SOLU-MEDROL 40MG IV Q8H, IV TYLENOL 1000MG IV Q6H PRN, DURAGESIC 100MCG/HR PATCH, DILAUDID 2MG IV Q2H PRN, OXYCODONE 20MG QID PNR, BUSPAR 10MG BID, BUPROPION 150MG BID, COLACE 100MG HS, GABAPENTIN 300MG TID, MILK OF MA GNESIA 30ML HS, MAG OX 400MG BID, PROTONIX 40MG DAILY, PHENERGAN 25MG TID PRN (2) Enterococcus UTI Status: Acute (3) Intractable pain Status: Acute (4) Pancytopenia Status: Acute (5) Hypomagnesemia Status: Acute (6) Hypoalbuminemia Status: Acute (7) GERD (gastroesophageal reflux disease) Status: Chronic Qualifiers: Esophagitis presence: esophagitis presence not specified Qualified Code(s): K21.9 - Gastro-esophageal reflux disease without esophagitis (8) DDD (degenerative disc disease) Status: Chronic Qualifiers: Spinal region: lumbosacral Qualified Code(s): M51.37 - Other intervertebral disc degeneration, lumbosacral region (9) Major depressive disorder Status: Chronic Qualifiers: Major depression recurrence: recurrent Active/Remission status: remission status unspecified Qualified Code(s): F33.9 - Major depressive disorder, recurrent, unspecified
[2022-09-11] MEDS: COLACE CAP 100 MG PO SCH (20:44)
[2022-09-11] MEDS: MILK OF MAGNESIA PO SCH (20:45)
[2022-09-12 05:07] VITALS: PULSE 58
[2022-09-12] MEDS: SOLU-Medrol 40 MG VIAL IVP SCH (05:27)
[2022-09-12] MEDS: NEURONTIN CAP 300 MG PO SCH (05:28)
[2022-09-12 06:13] LABS: BASOPHILS % (AUTO) 0.4 % (0.2-1.0); HEMATOCRIT 26.4 % (36.0-47.0); HEMOGLOBIN 8.9 g/dL (12.0-16.0); LYMPHOCYTES # (AUTO) 0.3 X10^3/uL (1.3-2.9); LYMPHOCYTES % (AUTO) 17.1 % (21.0-51.0); MEAN CORPUSCULAR HEMOGLOBIN 28.8 pg (27.0-34.0); MEAN CORPUSCULAR HGB CONC 33.8 g/dL (33.0-35.0); MEAN CORPUSCULAR VOLUME 85.2 fL (80.0-100.0); MEAN PLATELET VOLUME 7.7 fL (7.4-11.0); MONOCYTES # (AUTO) 0.1 x10^3/uL (0.3-0.8); MONOCYTES % (AUTO) 7.1 % (0.0-13.0); NEUTROPHILS # (AUTO) 1.2 x10^3/uL (2.2-4.8); NEUTROPHILS % (AUTO) 75.4 % (42.0-75.0); PLATELET COUNT 24 X10^3/uL (150.0-450.0); RED CELL DISTRIBUTION WIDTH 17.2 % (11.6-16.5)
[2022-09-12 06:15] LABS: WHITE BLOOD COUNT 1.6 X10^3/uL (3.6-10.0)
[2022-09-12 06:32] LABS: ALANINE AMINOTRANSFERASE 34 Units/L (12-78); ALBUMIN 3.3 g/dL (3.4-5.0); ALKALINE PHOSPHATASE 75 Units/L (46-116); ASPARTATE AMINO TRANSFERASE 31 Units/L (15-37); BLOOD UREA NITROGEN 12 mg/dL (7-18); CALCIUM 8.9 mg/dL (8.5-10.1); CARBON DIOXIDE 28.4 mmol/L (21-32); CHLORIDE 105 mmol/L (98-107); COR CA(FOR HYPOALB) 9.5 mg/dL (8.5-10.1); COR NA(FOR HYPERGLY) 142 mmol/L (136-145); GLUCOSE 127 mg/dL (65-99); SODIUM 141 mmol/L (136-145); TOTAL PROTEIN 6.4 g/dL (6.4-8.2); eGFR NON BLACK RACES > 60 (>60)
[2022-09-12 06:40] LABS: POTASSIUM 5.2 mmol/L (3.5-5.1)
[2022-09-12 08:37] VITALS: BP 172/74; RESP 18; TEMP 98.4; O2SAT 92
[2022-09-12] MEDS ORDERED: NS 1,000 ML IV 1,000 ML IV SCH (09:00)
[2022-09-12] MEDS: MAG-OX TAB PO SCH (09:15)
[2022-09-12] MEDS: PROTONIX TAB 40 MG PO SCH (09:15)
[2022-09-12] MEDS: WELLBUTRIN SR 150 MG (BID) PO SCH (09:15)
[2022-09-12] MEDS: BUSPAR PO SCH (10:41)
== END 2022-09-12 10:55 | disposition home health service (06) | DRG 947 ==
LOC: MED/SURG
PROVIDERS: ADMIT Internal Medicine; ATTEND Internal Medicine
DX: D61.810 Antineoplastic chemotherapy induced pancytopenia; K40.90 Unilateral inguinal hernia, without obstruction or gangrene, not specified as recurrent; F41.8 Other specified anxiety disorders; G89.3 Neoplasm related pain (acute) (chronic); E83.42 Hypomagnesemia; R70.0 Elevated erythrocyte sedimentation rate; B95.2 Enterococcus as the cause of diseases classified elsewhere; N39.0 Urinary tract infection, site not specified; M51.37 Other intervertebral disc degeneration, lumbosacral region; R79.82 Elevated C-reactive protein (CRP); F33.9 Major depressive disorder, recurrent, unspecified; C79.89 Secondary malignant neoplasm of other specified sites; E87.6 Hypokalemia; C51.9 Malignant neoplasm of vulva, unspecified; Z92.21 Personal history of antineoplastic chemotherapy

== ENCOUNTER 2022-10-24 17:46 | Inpatient (IN) ==
[2022-10-24] MEDS: NS 1,000 ML IV 1,000 ML IV SCH (19:22)
[2022-10-24] MEDS: DILAUDID INJ IVP PRN ×2 (19:23→21:15)
[2022-10-24 20:12] VITALS: BMI 22.3
[2022-10-24 20:36] LABS: BASOPHILS % (AUTO) 0.6 % (0.2-1.0); EOSINOPHILS % (AUTO) 0.4 % (0.9-2.9); HEMATOCRIT 20.3 % (36.0-47.0); HEMOGLOBIN 7.2 g/dL (12.0-16.0); LYMPHOCYTES # (AUTO) 0.3 X10^3/uL (1.3-2.9); LYMPHOCYTES % (AUTO) 6.9 % (21.0-51.0); MEAN CORPUSCULAR HEMOGLOBIN 31.9 pg (27.0-34.0); MEAN CORPUSCULAR HGB CONC 35.3 g/dL (33.0-35.0); MEAN CORPUSCULAR VOLUME 90.5 fL (80.0-100.0); MEAN PLATELET VOLUME 6.2 fL (7.4-11.0); MONOCYTES # (AUTO) 0.4 x10^3/uL (0.3-0.8); MONOCYTES % (AUTO) 8.6 % (0.0-13.0); NEUTROPHILS # (AUTO) 4.3 x10^3/uL (2.2-4.8); NEUTROPHILS % (AUTO) 83.5 % (42.0-75.0); PLATELET COUNT 189 X10^3/uL (150.0-450.0); RED BLOOD COUNT 2.25 X10^6/uL (3.5-5.4); RED CELL DISTRIBUTION WIDTH 27.8 % (11.6-16.5); WHITE BLOOD COUNT 5.1 X10^3/uL (3.6-10.0)
[2022-10-24 20:45] LABS: ALANINE AMINOTRANSFERASE 23 Units/L (12-78); ALBUMIN 2.5 g/dL (3.4-5.0); ALKALINE PHOSPHATASE 84 Units/L (46-116); ASPARTATE AMINO TRANSFERASE 29 Units/L (15-37); BLOOD UREA NITROGEN 16 mg/dL (7-18); CALCIUM 9.2 mg/dL (8.5-10.1); CARBON DIOXIDE 36.3 mmol/L (21-32); CHLORIDE 90 mmol/L (98-107); COR CA(FOR HYPOALB) 10.4 mg/dL (8.5-10.1); CREATININE 1.45 mg/dL (0.55-1.02); GLUCOSE 91 mg/dL (65-99); SODIUM 130 mmol/L (136-145); TOTAL PROTEIN 6.8 g/dL (6.4-8.2); eGFR NON BLACK RACES 39 (>60)
[2022-10-24 20:47] LABS: ANISOCYTOSIS 3+; PLATELET MORPHOLOGY COMMENT NORMAL (NORMAL)
[2022-10-24 20:48] LABS: POTASSIUM 2.5 mmol/L (3.5-5.1)
[2022-10-24] MEDS ORDERED: PHENERGAN TAB 25 MG PO PRN (20:48)
[2022-10-24] MEDS ORDERED: HYOSCYAMINE SULFATE 0.125 MG PO PRN (20:48)
[2022-10-24] MEDS ORDERED: CONSULT PHARMACY - POTASSIUM & MAGNESIUM XX SCH (21:00)
[2022-10-24] MEDS ORDERED: RESTORIL CAP 30 MG PO SCH (21:00)
[2022-10-24] MEDS ORDERED: SOLU-Medrol 125 MG VIAL IVP ONE (21:07)
[2022-10-24] MEDS ORDERED: HYOSCYAMINE SULFATE ODT PO PRN (21:25)
[2022-10-24] MEDS: MAG-OX TAB PO SCH (21:35)
[2022-10-24] MEDS: K-DUR TAB 20 MEQ PO SCH (21:35)
[2022-10-24] MEDS: PROTONIX TAB 40 MG PO SCH (21:41)
[2022-10-24] MEDS: BUSPAR PO SCH (21:41)
[2022-10-24] MEDS: ZOFRAN TAB 4 MG PO SCH (21:43)
[2022-10-24] MEDS: CHECK PATCH XX SCH (21:56)
[2022-10-25] MEDS: K-DUR TAB 20 MEQ PO SCH ×2 (00:14→02:59)
[2022-10-25] MEDS: MAG-OX TAB PO SCH ×3 (00:15→20:30)
[2022-10-25 05:10] LABS: BASOPHILS % (AUTO) 0 % (0.2-1.0); EOSINOPHILS % (AUTO) 0.1 % (0.9-2.9); HEMATOCRIT 20.1 % (36.0-47.0); HEMOGLOBIN 7.1 g/dL (12.0-16.0); LYMPHOCYTES # (AUTO) 0.1 X10^3/uL (1.3-2.9); LYMPHOCYTES % (AUTO) 3.5 % (21.0-51.0); MEAN CORPUSCULAR HGB CONC 35.1 g/dL (33.0-35.0); MEAN PLATELET VOLUME 6.4 fL (7.4-11.0); MONOCYTES # (AUTO) 0.1 x10^3/uL (0.3-0.8); MONOCYTES % (AUTO) 1.4 % (0.0-13.0); NEUTROPHILS # (AUTO) 3.9 x10^3/uL (2.2-4.8); PLATELET COUNT 184 X10^3/uL (150.0-450.0); RED BLOOD COUNT 2.21 X10^6/uL (3.5-5.4); WHITE BLOOD COUNT 4.1 X10^3/uL (3.6-10.0)
[2022-10-25 05:25] LABS: ALANINE AMINOTRANSFERASE 21 Units/L (12-78); ALBUMIN 2.2 g/dL (3.4-5.0); ALKALINE PHOSPHATASE 78 Units/L (46-116); ASPARTATE AMINO TRANSFERASE 22 Units/L (15-37); BLOOD UREA NITROGEN 14 mg/dL (7-18); CALCIUM 9.1 mg/dL (8.5-10.1); CARBON DIOXIDE 35.4 mmol/L (21-32); CHLORIDE 94 mmol/L (98-107); COR CA(FOR HYPOALB) 10.5 mg/dL (8.5-10.1); COR NA(FOR HYPERGLY) 135 mmol/L (136-145); CREATININE 1.11 mg/dL (0.55-1.02); GLUCOSE 151 mg/dL (65-99); POTASSIUM 3.3 mmol/L (3.5-5.1); SODIUM 134 mmol/L (136-145); TOTAL PROTEIN 6.6 g/dL (6.4-8.2); eGFR NON BLACK RACES 53 (>60)
[2022-10-25 05:36] LABS: ANISOCYTOSIS 3+; PLATELET MORPHOLOGY COMMENT NORMAL (NORMAL)
[2022-10-25] MEDS ORDERED: CONSULT PHARMACY - POTASSIUM & MAGNESIUM XX SCH (06:00)
[2022-10-25] MEDS ORDERED: K-DUR TAB 20 MEQ PO SCH (06:00)
[2022-10-25] MEDS: SOLU-Medrol 40 MG VIAL IVP SCH ×3 (06:02→21:07)
[2022-10-25] MEDS: ZOFRAN TAB 4 MG PO SCH ×3 (06:02→21:08)
[2022-10-25] MEDS: NS 1,000 ML IV 1,000 ML IV SCH (08:47)
[2022-10-25] MEDS: HYDROCHLOROTHIAZIDE 25 MG TAB PO SCH (08:47)
[2022-10-25] MEDS: PEPCID TAB 20 MG PO SCH (08:49)
[2022-10-25] MEDS: NS + KCL 20 MEQ/L 1,000 ML IV SCH ×2 (08:49→20:33)
[2022-10-25] MEDS: BUSPAR PO SCH ×2 (08:49→20:30)
[2022-10-25] MEDS: PROTONIX TAB 40 MG PO SCH (08:50)
[2022-10-25] MEDS: CHECK PATCH XX SCH ×2 (08:57→20:30)
[2022-10-25] MEDS: DILAUDID INJ IVP PRN ×6 (09:01→22:30)
[2022-10-25] MEDS: MILK OF MAGNESIA PO PRN ×2 (11:33→20:33)
[2022-10-25] MEDS: MORPHINE SULFATE INJ 4 MG IVP PRN ×2 (12:08→17:19)
--- NOTE | 2022-10-25 13:10 | DR.H&P ---
H&P - History & Physical for Day of: H&P Date: 10/24/22 - Chief Complaint Chief Complaint: INTRACTABLE VAGINAL PAIN AND SWELLING - History of Present Illness History of Present Illness: IS A 62 YEAR OLD PATIENT OF OURS. SHE WAS A DIRECT ADMISSION TO THE HOSPITAL G[facility]ROUGH [facility] FOR TREATMENT OF INTRACTABLE PAIN DUE TO VULVAR CANCER. HER MEDICAL HISTORY INCLUDES: VULVAR CANCER, VULVECTOMY, SUPRAPUBIC CATHETER, ANXIETY, DEPRESSION, ARTHRITIS, CHRONIC BACK PAIN, BREAST REDUCTION, HYSTERECTOMY, PORT A CATH PLACEMENT. ON ADMISSION, PATIENT COMPLAINED OF 10/10 PAIN TO THE GENITAL AREA. AT HOME, SHE IS PRESENTLY ON A TOTAL OF 250MCG/HR FENTANYL PATCHES THAT ARE CHANGED EVERY 3 DAYS, HYDROMORPHONE 8MG PO Q2H PRN, AND MORPHINE CONCENTRATE 10MG Q1H PRN FOR PAIN. PATIENT REPORTED THAT THESE MEDICATIONS HAVE NOT BEEN CONTROLLING HER VAGINAL PAIN. ON ADMISSION TO THE HOSPITAL, HER VITALS WERE: 98.0-116-15-97%-124/68. LABS WERE OBTAINED. WBC 5.1, RBC 2.25, HGB 7.2, HCT 20.3, PLT COUNT 189, SODIUM 130, POTASSIUM 2.5, CHLORIDE 90, CARBON DIOXIDE 36.3, BUN 16, CREATININE 1.45, GLUCOSE 91, CALCIUM 9.2, MAGNESIUM 1.7, TOTAL BILI 0.60, AST 29, ALT 23, ALK PHOS 84, TOTAL PROTEIN 6.8, ALBUMIN 2.5. SHE WAS STARTED ON NORMAL SALINE WITH 20MEQ KCL AT 50 ML/HR, SOLU-MEDROL 125MG IV X 1 DOSE, THEN SOLU-MEDROL 80MG IV Q8H, DILAUDID 2MG IV Q2H PRN PAIN, FENTANYL 250MCG/HR PATCH, MORPHINE SULFATE 4MG IV Q4H PRN PAIN, MILK OF MAGNESIA 30ML Q12H PRN, MAG OX 400MG BID. WE WILL RESUME HER HOME MEDICATIONS OV BUSPAR, PEPCID, HCTZ, ATIVAN, HYOSCYAMINE, ZYPREXA, ZOFRAN, PROTONIX, PHENERGAN, AND TEMAZEPAM. OTHERWISE, WE WILL REPEAT AN H&H AND CONTINUE TO MONITOR. TIME SPENT ON CLINICAL ASSESSMENT, REVIEWING LABS AND IMAGING, DECISION MAKING, AND DOCUMENTATION GREATER THAN 75 MINUTES. - Past Medical History Past Medical History: Anxiety, Arthritis, Depression, Hypertension Additional Medical History: VULVAR CANCER, CHRONIC BACK PAIN - Past Surgical History Surgical History: [employer] Surgery, Hysterectomy, Other Additional Surgical History: VULVECTOMY, BREAST REDUCTION - Family History Family Medical History: [place] - Social History Does patient currently use any type of tobacco product: No Have you used tobacco products in the last 12 months: No Alcohol Use: None Drug Use: None - Review of Systems Constitutional: Weakness Eyes: No Symptoms Reported ENT: No Symptoms Reported Respiratory: No Symptoms Reported Cardiovascular: No Symptoms Reported Gastrointestinal: No Symptoms Reported Genitourinary: See HPI, Other (VAGINAL PAIN AND SWELLING ) Musculoskeletal: Back Pain Skin: No Symptoms Reported Neurological: Weakness - Physical Exam Vital Signs: Vital Signs Temperature 98.2 F Pulse Rate 116 Pulse Rate 113 Pulse Rate 107 Pulse Rate 86 Pulse Rate 88 Pulse Rate 84 Pulse Rate 88 Pulse Rate 76 Pulse Rate 77 Pulse Rate 77 Pulse Rate 86 Pulse Rate 77 Pulse Rate 80 Pulse Rate 86 Pulse Rate 85 Pulse Rate 91 Pulse Rate 85 Pulse Rate 83 Pulse Rate 85 Pulse Rate 60 Pulse Rate 58 Pulse Rate 58 Pulse Rate 62 Pulse Rate 68 Pulse Rate 62 Pulse Rate 62 Pulse Rate 61 Pulse Rate 60 Pulse Rate 61 Pulse Rate 64 Pulse Rate 63 Pulse Rate 61 Pulse Rate 62 Pulse Rate 66 Pulse Rate 65 Pulse Rate 63 Respiratory Rate 20 Respiratory Rate 20 Respiratory Rate 20 Respiratory Rate 20 Respiratory Rate 14 Respiratory Rate 47 Respiratory Rate 20 Respiratory Rate 24 Respiratory Rate 10 Respiratory Rate 17 Respiratory Rate 15 Respiratory Rate 11 Respiratory Rate 14 Respiratory Rate 15 Respiratory Rate 25 Respiratory Rate 20 Respiratory Rate 16 Respiratory Rate 13 Respiratory Rate 18 Respiratory Rate 20 Respiratory Rate 12 Respiratory Rate 16 Respiratory Rate 17 Respiratory Rate 32 Respiratory Rate 19 Respiratory Rate 18 Respiratory Rate 11 Respiratory Rate 9 Respiratory Rate 8 Respiratory Rate 14 Respiratory Rate 17 Respiratory Rate 16 Respiratory Rate 14 Respiratory Rate 12 Respiratory Rate 7 Respiratory Rate 15 Respiratory Rate 13 Respiratory Rate 14 Respiratory Rate 9 Respiratory Rate 11 Respiratory Rate 11 Respiratory Rate 10 Blood Pressure 108/71 Blood Pressure 105/66 Blood Pressure 95/51 Blood Pressure 94/54 Blood Pressure 85/52 Blood Pressure 92/54 Blood Pressure 96/51 Blood Pressure 102/52 Blood Pressure 95/55 Blood Pressure 95/62 Blood Pressure 83/50 Blood Pressure 77/48 Blood Pressure 76/50 Blood Pressure 79/50 Blood Pressure 77/47 Blood Pressure 83/52 Blood Pressure 77/43 Blood Pressure 87/50 Blood Pressure 87/50 O2 Sat by Pulse Oximetry 88 O2 Sat by Pulse Oximetry 80 O2 Sat by Pulse Oximetry 95 O2 Sat by Pulse Oximetry 97 O2 Sat by Pulse Oximetry 91 O2 Sat by Pulse Oximetry 99 O2 Sat by Pulse Oximetry 94 O2 Sat by Pulse Oximetry 94 O2 Sat by Pulse Oximetry 96 O2 Sat by Pulse Oximetry 76 O2 Sat by Pulse Oximetry 95 O2 Sat by Pulse Oximetry 94 O2 Sat by Pulse Oximetry 90 O2 Sat by Pulse Oximetry 95 O2 Sat by Pulse Oximetry 92 O2 Sat by Pulse Oximetry 92 O2 Sat by Pulse Oximetry 92 O2 Sat by Pulse Oximetry 96 O2 Sat by Pulse Oximetry 94 O2 Sat by Pulse Oximetry 94 O2 Sat by Pulse Oximetry 92 O2 Sat by Pulse Oximetry 94 O2 Sat by Pulse Oximetry 93 O2 Sat by Pulse Oximetry 93 O2 Sat by Pulse Oximetry 94 O2 Sat by Pulse Oximetry 91 O2 Sat by Pulse Oximetry 91 O2 Sat by Pulse Oximetry 92 O2 Sat by Pulse Oximetry 93 O2 Sat by Pulse Oximetry 92 O2 Sat by Pulse Oximetry 92 O2 Sat by Pulse Oximetry 92 O2 Sat by Pulse Oximetry 93 O2 Sat by Pulse Oximetry 93 O2 Sat by Pulse Oximetry 95 Oriented: Normal Eyes: Normal Ear: Normal Nose: Normal Throat: Normal Respiratory: Diminished Throughout Cardiovascular: Normal : Other (VAGINAL SWELLING AND PAIN ) Auscultation: Bowel Sounds: Normal Palpation: Normal Tenderness: Normal Skin: Red, Tender, Other (VAGINAL REDNESS AND SWELLING OF LABIA) Musculoskeletal: Back:Lumbar, Tender Psychiatric: Normal Mood Description: Calm Affect: Normal Speech Pattern: Clear - Assessment/Plan (1) Intractable pain Status: Acute Plan: ADMIT, NORMAL SALINE WITH 20MEQ KCL AT 50 ML/HR, SOLU-MEDROL 125MG IV X 1 DOSE, THEN SOLU-MEDROL 80MG IV Q8H, DILAUDID 2MG IV Q2H PRN PAIN, FENTANYL 250MCG/HR PATCH, MORPHINE SULFATE 4MG IV Q4H PRN PAIN, MILK OF MAGNESIA 30ML Q12H PRN, MAG OX 400MG BID. RESUME HOME MEDICATIONS OF BUSPAR, PEPCID, HCTZ, ATIVAN, HYOSCYAMINE, ZYPREXA, ZOFRAN, PROTONIX, PHENERGAN, AND TEMAZEPAM. (2) Primary vulvar cancer Status: Acute (3) Anemia Qualifiers: Anemia type: unspecified type Qualified Code(s): D64.9 - Anemia, unspecified Status: Acute (4) Hyponatremia Status: Acute (5) Hypokalemia Status: Acute (6) Hypomagnesemia Status: Acute (7) BOBBY (generalized anxiety disorder) Status: Acute (8) GERD (gastroesophageal reflux disease) Qualifiers: Esophagitis presence: esophagitis presence not specified Qualified Code(s): K21.9 - Gastro-esophageal reflux disease without esophagitis Status: Chronic (9) Major depressive disorder Qualifiers: Major depression recurrence: recurrent Active/Remission status: remission status unspecified Qualified Code(s): F33.9 - Major depressive disorder, recurrent, unspecified Status: Chronic (10) Insomnia Qualifiers: Insomnia type: primary Qualified Code(s): F51.01 - Primary insomnia Status: Chronic - Allergies Allergies/Adverse Reactions: Allergies Allergy/AdvReac Type Severity Reaction Status Date / Time No Known Drug Allergies Allergy Verified 02/25/18 22:45 - Medications Home Medications: Home Medications Medication Instructions Recorded Confirmed buspirone 10 mg tablet 10 mg PO BID 09/01/22 10/24/22 hydrochlorothiazide 25 mg tablet 25 mg PO QDAY 09/01/22 10/24/22 ondansetron 4 mg disintegrating 1 tab PO TID 09/01/22 10/24/22 tablet pantoprazole 40 mg tablet,delayed 40 mg PO QDAY 09/01/22 10/24/22 release promethazine 25 mg tablet 1 - 2 tab PO QID PRN 09/04/22 10/24/22 famotidine 20 mg tablet 20 mg PO QDAY 10/24/22 10/24/22 fentanyl 100 mcg/hr transdermal 250 mcg Q72H 10/24/22 10/24/22 patch hydromorphone 4 mg tablet 8 mg PO Q2H 10/24/22 10/24/22 hyoscyamine sulfate 0.125 mg 0.125 mg PO Q6H PRN 10/24/22 10/24/22 tablet (Levsin) lorazepam 0.5 mg tablet 0.5 mg PO Q6H PRN 10/24/22 10/24/22 morphine concentrate 20 mg/mL oral 10 mg Q1H PRN 10/24/22 10/24/22 syringe (FOR ORAL USE ONLY) olanzapine 2.5 mg tablet 2.5 mg PO QPM 10/24/22 10/24/22 temazepam 30 mg capsule 30 mg PO HS 10/24/22 10/24/22
[2022-10-25] MEDS ORDERED: RESTORIL CAP 15 MG PO ONE (19:05)
[2022-10-25] MEDS: RESTORIL CAP 15 MG PO SCH (20:31)
[2022-10-25] MEDS ORDERED: COLACE CAP 100 MG PO PRN (20:41)
[2022-10-25] MEDS ORDERED: COLACE CAP 100 MG PO ONE (20:42)
[2022-10-26] MEDS: DILAUDID INJ IVP PRN ×6 (02:37→13:04)
[2022-10-26] MEDS: SOLU-Medrol 40 MG VIAL IVP SCH ×3 (05:41→21:23)
[2022-10-26] MEDS: ZOFRAN TAB 4 MG PO SCH ×3 (05:41→21:24)
[2022-10-26 05:59] LABS: HEMATOCRIT 19.1 % (36.0-47.0); HEMOGLOBIN 6.6 g/dL (12.0-16.0)
[2022-10-26] MEDS: MORPHINE SULFATE INJ 4 MG IVP PRN ×2 (08:19→12:21)
[2022-10-26] MEDS: ATIVAN TAB 0.5 MG PO PRN (08:20)
[2022-10-26] MEDS: PROTONIX TAB 40 MG PO SCH (08:42)
[2022-10-26] MEDS: HYDROCHLOROTHIAZIDE 25 MG TAB PO SCH (08:42)
[2022-10-26] MEDS: PEPCID TAB 20 MG PO SCH (08:42)
[2022-10-26] MEDS: BUSPAR PO SCH ×2 (08:43→21:34)
[2022-10-26] MEDS: MAG-OX TAB PO SCH ×2 (08:43→21:34)
[2022-10-26] MEDS: CHECK PATCH XX SCH ×2 (09:03→21:25)
[2022-10-26] MEDS: NS + KCL 20 MEQ/L 1,000 ML IV SCH ×3 (10:08→23:53)
[2022-10-26] MEDS: MORPHINE SULFATE INJ 4 MG IVP SCH ×3 (14:12→23:45)
[2022-10-26] MEDS: DILAUDID INJ IVP SCH ×4 (16:25→23:51)
[2022-10-26] MEDS: RESTORIL CAP 15 MG PO SCH (21:23)
[2022-10-27] MEDS: DILAUDID INJ IVP SCH ×12 (01:48→23:52)
[2022-10-27] MEDS: MORPHINE SULFATE INJ 4 MG IVP SCH ×7 (03:25→23:03)
[2022-10-27] MEDS: ZOFRAN TAB 4 MG PO SCH ×3 (05:11→21:14)
[2022-10-27] MEDS: SOLU-Medrol 40 MG VIAL IVP SCH ×3 (05:13→21:32)
[2022-10-27] MEDS: MILK OF MAGNESIA PO PRN (08:40)
[2022-10-27] MEDS: BUSPAR PO SCH ×2 (08:41→21:24)
[2022-10-27] MEDS: PEPCID TAB 20 MG PO SCH (08:41)
[2022-10-27] MEDS: PROTONIX TAB 40 MG PO SCH (08:41)
[2022-10-27] MEDS: HYDROCHLOROTHIAZIDE 25 MG TAB PO SCH (08:41)
[2022-10-27] MEDS: CHECK PATCH XX SCH ×2 (08:46→21:31)
[2022-10-27] MEDS: MAG-OX TAB PO SCH ×3 (10:04→21:25)
[2022-10-27] MEDS: NS + KCL 20 MEQ/L 1,000 ML IV SCH ×2 (12:01→19:55)
[2022-10-27] MEDS: COLACE CAP 100 MG PO SCH (12:43)
[2022-10-27] MEDS ORDERED: DURAGESIC 100 mcg/HR PATCH TD SCH (17:00)
[2022-10-27] MEDS: RESTORIL CAP 15 MG PO SCH (21:14)
[2022-10-28] MEDS: DILAUDID INJ IVP SCH ×7 (00:56→12:26)
[2022-10-28] MEDS: ATIVAN TAB 0.5 MG PO PRN ×2 (00:57→12:02)
[2022-10-28] MEDS: MORPHINE SULFATE INJ 4 MG IVP SCH ×3 (03:10→11:02)
[2022-10-28] MEDS: ZOFRAN TAB 4 MG PO SCH ×3 (05:29→22:27)
[2022-10-28] MEDS: SOLU-Medrol 40 MG VIAL IVP SCH ×3 (05:29→22:27)
[2022-10-28] MEDS: NS + KCL 20 MEQ/L 1,000 ML IV SCH ×2 (05:47→14:04)
[2022-10-28] MEDS ORDERED: DULCOLAX TAB EC 5 MG PO ONE (08:45)
[2022-10-28] MEDS ORDERED: LINZESS PO SCH (09:00)
[2022-10-28] MEDS ORDERED: VERSED IV PREMIX IV PRN (12:28)
[2022-10-28] MEDS ORDERED: MORPHINE SULFATE PCA 30 MG IV PRN (12:30)
[2022-10-28] MEDS ORDERED: NARCAN INJ IVP PRN ×3 (12:30→16:56)
[2022-10-28] MEDS ORDERED: VERSED 100 MG in NS 100 ML IV 80 ML IV PRN ×3 (12:32→16:58)
[2022-10-28] MEDS: BUSPAR PO SCH ×2 (12:34→20:49)
[2022-10-28] MEDS: CHECK PATCH XX SCH ×2 (12:34→20:51)
[2022-10-28] MEDS: HYDROCHLOROTHIAZIDE 25 MG TAB PO SCH (12:35)
[2022-10-28] MEDS: COLACE CAP 100 MG PO SCH (12:35)
[2022-10-28] MEDS: PEPCID TAB 20 MG PO SCH (12:37)
[2022-10-28] MEDS: PROTONIX TAB 40 MG PO SCH (12:37)
[2022-10-28] MEDS: MAG-OX TAB PO SCH ×2 (12:37→20:50)
[2022-10-28] MEDS ORDERED: MORPHINE SULFATE PCA 30 MG IVP PRN (16:56)
[2022-10-28] MEDS ORDERED: MORPHINE SULFATE PCA 30 MG ONE (16:58)
[2022-10-28] MEDS ORDERED: MORPHINE SULFATE PCA 30 MG IVP SCH (17:00)
[2022-10-28] MEDS ORDERED: DILAUDID INJ IVP ONE (17:19)
[2022-10-28] MEDS ORDERED: DILAUDID INJ ONE (17:20)
[2022-10-28] MEDS: MORPHINE SULFATE PCA 30 MG IVP PRN ×2 (20:22→23:38)
[2022-10-28] MEDS: RESTORIL CAP 15 MG PO SCH (20:49)
[2022-10-28] MEDS: VERSED 100 MG in NS 100 ML IV 80 ML IV PRN (22:21)
[2022-10-29] MEDS: MORPHINE SULFATE PCA 30 MG IVP PRN ×3 (02:28→08:36)
[2022-10-29] MEDS: SOLU-Medrol 40 MG VIAL IVP SCH (05:21)
[2022-10-29] MEDS: ZOFRAN TAB 4 MG PO SCH (05:22)
[2022-10-29] MEDS: VERSED 100 MG in NS 100 ML IV 80 ML IV PRN ×3 (05:44→23:19)
[2022-10-29] MEDS: CHECK PATCH XX SCH ×2 (10:33→21:20)
[2022-10-29] MEDS: MORPHINE SULFATE IV SCH ×5 (10:51→21:18)
[2022-10-29] MEDS: NS IV SCH ×5 (10:51→21:18)
[2022-10-29] MEDS ORDERED: DURAGESIC 100 mcg/HR PATCH TD SCH (20:00)
[2022-10-29] MEDS ORDERED: DURAGESIC 100 mcg/HR PATCH TD ONE (21:06)
[2022-10-30] MEDS: NS IV SCH ×8 (01:00→20:05)
[2022-10-30] MEDS: MORPHINE SULFATE IV SCH ×8 (01:00→20:05)
[2022-10-30] MEDS: VERSED 100 MG in NS 100 ML IV 80 ML IV PRN ×4 (03:59→19:16)
[2022-10-30 09:23] VITALS: TEMP 97.8
[2022-10-30] MEDS: CHECK PATCH XX SCH ×2 (09:24→21:00)
[2022-10-31 00:03] VITALS: RESP 28
[2022-10-31 01:01] VITALS: BP 103/57; PULSE 145; O2SAT 53
== END 2022-10-31 02:44 | disposition expired | DRG 948 ==
LOC: ICU → OBSVTOIN 18:43
PROVIDERS: ADMIT Internal Medicine; ATTEND Internal Medicine